=== PATIENT | male | born 1960 | race Caucasian/White ===

== ENCOUNTER 2018-10-12 11:45 | Day surgery (SDC) | payer OTHER, SELFPAY ==
[2018-10-12] VITALS (9 sets, daily range): BP systolic 120–159; BP diastolic 77–101; PULSE 51–69; RESP 13–16; TEMP 36.4–36.8; O2SAT 98–100
[2018-10-12] MEDS: Lactated Ringers 1,000 ML 80 ML IV (12:00)
[2018-10-12] MEDS: Bupivacaine 0.5% Pres-Free 30 ML VIAL (14:36)
--- NOTE | 2018-10-12 14:59 | W.PM.DSUDISC ---
Discharge Plan Disposition Patient Disposition: HOME Condition: Good Discharge Details Reason For Visit: (L) KNEE MMT Attending Provider: Rob Lynne Primary Care Provider: Dee Tee Home Meds and New Rx's Prescriptions: New hydrocodone-acetaminophen 5-325 mg tablet 1 tab PO Q4H PRN (Reason: pain) Qty: 10 RF: 0 acetaminophen 500 mg capsule 1,000 mg PO Q8H PRN (Reason: pain) Qty: 90 RF: 0 Continued levetiracetam [Keppra] 1,000 mg tablet 1,500 mg PO .am RF: 0 levetiracetam [Keppra] 1,000 mg tablet 1,000 mg PO HS RF: 0 dexmethylphenidate 10 mg capsule,ER biphasic 50-50 10 mg PO BID RF: 0 meloxicam 15 mg tablet 15 mg PO DAILY RF: 0 sumatriptan succinate 25 mg tablet 100 mg PO PRN RF: 0 hydrochlorothiazide 25 MG tablet 25 mg PO DAILY RF: 0 Discharge Instructions Stand Alone Forms: Maged Knee Arthroscopy Equipment/Supplies: Partial Weight Bearing Crutches Activity:: Elevate Remove Dressings/Wound Care:: 72 hours Shower/Bathe:: 72 hours Diet:: As Tolerated Discharge Orders Discharge Orders: Discharge Order (Routine); Ordered 10/12/18 Ordered By: Rob Lynne DS: Diagnosis Discharge Diagnosis (1) Tear of medial meniscus of left knee: Status: Chronic
[2018-10-12] MEDS: fentaNYL 100 MCG/2 ML VIAL IVP (15:25)
[2018-10-12] MEDS: oxyCODONE 5 MG TAB PO (16:14)
--- NOTE | 2018-10-12 21:05 | ROE_ITS ---
Date of service: 10/12/18 Time of Service: 15:01 Operative Note DATE OF PROCEDURE: 10/12/18 PRE-OP DIAGNOSIS: Left Knee Medial Meniscus Tear POST-OP DIAGNOSIS: same PROCEDURE: Left Knee Arthroscopic Partial Medial Menisectomy SURGEON: Rob Lynne ANESTHESIA: GETSofia ESTIMATED BLOOD LOSS: 0 PATHOLOGY: none sent COMPLICATIONS: None Patient was transported to: PACU Patient's condition: stable Indications: I have seen Vicente in clinic for symptoms of a meniscus tear. This was confirmed based on MRI and exam findings. Nonoperative measures were exhausted but disability and pain persisted. I discussed knee arthroscopy with meniscal intervention with the patient. I reviewed the risks of the procedure to include, but not limited to, bleeding, infection, pain, stiffness, damage to nerves or vessels, recurrence, blood clot. Despite these risks, the patient elected to proceed. 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 The consent was reviewed with the patient and signed. The history and physical was updated. All questions were answered. Vicente was taken back to the operating room. The patient was placed into the supine position on the operating room table. A nonsterile tourniquet was placed high onto the leg but not used. All bony prominences were well padded. Prophylactic antibiotics in the form of cefazolin were administered. The left leg was then prepped with Chloraprep and draped in a standard fashion with stockinette and extremity drape. A timeout to confirm correct identity, side and site, procedure, allergies, anesthesia, and medical concerns was performed. The leg was placed into a pneumatic leg ivory, [id number]. A standard lateral portal was made at the lateral border of the patella tendon in line with the inferior pole of the patella, soft spot. The skin and deep tissue was incised sharply and the blunt trochar was inserted atraumatically. A diagnostic arthroscopy was performed and the findings are listed above. The suprapatellar pouch had no significant inflammatory change. The patellofemoral articulation showed no articular damage as well as good tracking. The lateral gutter had no loose bodies and the medial gutter had no loose bodies. The knee was brought into some valgus stress in extension to open the medial compartment. A medial portal was made, localized by a spinal needle. The portal was created with an #11 blade through skin and capsule under direct visualization avoiding any meniscal injury. A probe was then inserted into the medial compartment. The medial compartment was fully inspected. The chondral surface of the tibia showed some grade II chondromalacia over the posterior tibia and the surface of the femur showed focal fraying and grade I/II chondromalacia. The medial meniscus had a complex meniscal tear with displaced fragments into the notch and also into the medial gutter. After evaluation, the meniscus was debrided down to a stable base using a series of biters and arthroscopic lenard. It was probed afterwards to confirm that the tear had been removed and the meniscus was stable. Cartilage surfaces were debrided of any flaps, leaving any intact fibers. The notch was then inspected which showed an intact ACL and an intact PCL. The leg was then brought into a figure of 4 position. The lateral compartment was fully inspected with the arthroscope and a probe. The chondral surface of the lateral femur showed no significant chondromalacia. The chondral surface of the lateral tibia showed no significant chondromalacia. The lateral meniscus had no meniscal tear. The arthroscope was brought back into the suprapatellar pouch and the leg was in full extension. The knee was thoroughly irrigated with the arthroscopic fluid on high flow and pressure. Inflow was stopped and excess fluid was removed. The wounds were closed with 4-0 Nylon. They were dressed with Xeroform, 4x4 gauze, ABD pad, Kerlix and an JAZZY wrap. A cryo-cuff was applied. The patient tolerated the procedure well and was returned to the [facility] area in a stable condition suffering no known complication.
== END 2018-10-12 17:07 | disposition home or self-care (01) ==
PROVIDERS: PCP Family Medicine; Visit Provider Student in an Organized Health Care Education/Training Program
PROC: (CPT 29870; principal; 2018-10-12 14:15)
DX: S83.232A Complex tear of medial meniscus, current injury, left knee, initial encounter (principal); X58.XXXA Exposure to other specified factors, initial encounter; M94.262 Chondromalacia, left knee
CPT/HCPCS: 29881; E0114; J0690; J1100; J1885; J2405; J3010

== ENCOUNTER 2019-06-22 09:43 | Outpatient (REF) | payer SELFPAY ==
[2019-06-22 12:44] LABS: HCT 46.9 % (40.0-50.0); HGB 15.9 g/dL (13.5-17.5); Mean Corp. HGB Concentration 33.9 g/dL (32.0-36.0); Mean Corpuscular Hemoglobin 31.1 pg (27.0-33.0); Mean Corpuscular Volume 91.8 fL (80-95); Mean Platelet Volume 10.3 fL (8.0-11.0); Platelet Count 344 x1000/uL (130-400); RBC 5.11 m/cumm (4.50-6.00); RBC Distribution Width 12.7 % (11.8-14.1); White Blood Cell Count 5.01 k/cumm (4.4-10.8)
[2019-06-22 13:58] LABS: ALT 34 U/L (16-63); AST 13 U/L (15-37); Albumin 3.9 g/dL (3.4-5.0); Alkaline Phosphatase 68 U/L (46-116); Anion Gap 10.3 mmol/L (3-11); BUN 20 mg/dL (7-18); Bilirubin, Total 0.5 mg/dL (0.2-1.0); CO2 27.7 mmol/L (21.0-32.0); CREATININE 1.11 mg/dL (0.70-1.30); Calcium 9.3 mg/dL (8.5-10.1); Calculated LDL 148 mg/dL; Chloride 104 mmol/L (98-107); Cholesterol 223 mg/dL (50-200); Glucose 95 mg/dL (70-100); HDL Cholesterol 60 mg/dL (40-60); Potassium 4.3 mmol/L (3.5-5.1); Sodium 142 mmol/L (136-145); Total Protein 7.1 g/dL (6.4-8.2); Triglyceride 76 mg/dL (30-150)
[2019-06-25 09:54] LABS: PSA, Diagnostic 0.9 ng/ml (0-3.5)
== END 2019-06-22 10:03 ==
LOC: NCHCN 09:43
PROVIDERS: PCP Family Medicine; Visit Provider Family Medicine
DX: Z00.00 Encounter for general adult medical examination without abnormal findings (principal); I10 Essential (primary) hypertension; G43.A0 Cyclical vomiting, in migraine, not intractable; R97.20 Elevated prostate specific antigen [PSA]
CPT/HCPCS: 80053; 80061; 85027; 84153

== ENCOUNTER 2019-12-14 15:14 | Outpatient (REF) | payer BC, SELFPAY ==
[2019-12-14 22:07] LABS: ALT 37 U/L (16-63); AST 22 U/L (15-37); Albumin 4.1 g/dL (3.4-5.0); Alkaline Phosphatase 67 U/L (46-116); BUN 22 mg/dL (7-18); Bilirubin, Total 0.4 mg/dL (0.2-1.0); CREATININE 1.11 mg/dL (0.70-1.30); Calcium 9.4 mg/dL (8.5-10.1); Chloride 102 mmol/L (98-107); Glucose 80 mg/dL (74-106); Potassium 3.6 mmol/L (3.5-5.1); Sodium 139 mmol/L (136-145); TSH (W/Ref FT4) 1.74 uIU/mL (0.36-3.74); Total Protein 7.1 g/dL (6.4-8.2)
[2019-12-14 22:09] LABS: ESR 4 mm/hr (1-20)
[2019-12-14 22:13] LABS: Anion Gap 11.7 mmol/L (3-11); CO2 25.3 mmol/L (21.0-32.0)
[2019-12-16 16:38] LABS: Rheumatoid Factor <8.6 IU/mL (<12.0)
[2019-12-17 14:56] LABS: ANA Interpretation Negative (Negative)
== END 2019-12-14 15:34 ==
LOC: NCHCN 15:14
PROVIDERS: PCP Family Medicine; Visit Provider Family Medicine
DX: I10 Essential (primary) hypertension (principal); F90.9 Attention-deficit hyperactivity disorder, unspecified type; M25.40 Effusion, unspecified joint
CPT/HCPCS: 80053; 85652; 84443; 86038; 86431

== ENCOUNTER 2020-02-11 09:17 | Outpatient (CLI) | payer BC, SELFPAY ==
--- NOTE | 2020-02-11 08:30 | DI.RAD_ITS ---
EXAM: XR HAND RT COMPLETE CLINICAL HISTORY: right knee pain. TECHNIQUE: 2D digital imaging was performed. COMPARISON: No exams were available for comparison FINDINGS: BONES: No acute fracture is present. No bony destructive lesion is seen. There is a well corticated o sseous fragment seen at the dorsum of the wrist consistent with an old injury. JOINTS: No dislocation present. Minimal periarticular spurring is seen at the interphalangeal joints. SOFT TISSUE: Normal. IMPRESSION: Minimal degenerative changes of the right hand. DATA REPOSITORY: RADIATION DOSE DELIVERED:
--- NOTE | 2020-02-11 08:30 | DI.RAD_ITS ---
EXAM: XR CERVICAL SPINE COMP 4-5V CLINICAL HISTORY: bilateral hand numbness. TECHNIQUE: 2D digital imaging was performed. COMPARISON: No exams were available for comparison FINDINGS: BONES: No fracture or destructive lesion. There is fusion of the C6 and C7 vertebral bodies. DISKS: There is disc space narrowing at C5-C6 and C7-T1. There are endplate osteophytes seen at C5-6 and C7-T1. There is neural foraminal narrowing on the right at C5-C6 and on the left at C3-C4 and C4 -C5. ALIGNMENT: Cervical spinal alignment is within normal limits. The odontoid and atlantoaxial articulat ions are normal. SOFT TISSUE: Normal. The lung apices are clear. IMPRESSION: Ccwf-am-iifigsbe degenerative changes of the cervical spine. DATA REPOSITORY: RADIATION DOSE DELIVERED:
--- NOTE | 2020-02-11 08:30 | DI.RAD_ITS ---
EXAM: XR KNEE RT 3V AP,LAT,ART CLINICAL HISTORY: hand numbness. TECHNIQUE: 2D digital imaging was performed. COMPARISON: No exams were available for comparison FINDINGS: BONES: No acute fracture is present. No bony destructive lesion is seen. JOINTS: The knee is normally aligned. No joint effusion is seen. There is mild periarticular spurring at the posterior patella and the medial femoral tibial joint space. Chondrocalcinosis is seen in th e femoral tibial joint. SOFT TISSUE: Normal. IMPRESSION: Mild degenerative changes of the right knee. DATA REPOSITORY: RADIATION DOSE DELIVERED:
--- NOTE | 2020-02-11 08:30 | DI.RAD_ITS ---
EXAM: XR HAND LT COMPLETE CLINICAL HISTORY: hand numbness. TECHNIQUE: 2D digital imaging was performed. COMPARISON: No exams were available for comparison FINDINGS: BONES: No acute fracture is present. No bony destructive lesion is seen. Mild spurring is seen at the interphalangeal joints. JOINTS: No dislocation present. SOFT TISSUE: Normal. IMPRESSION: Mild degenerative changes of the left hand. DATA REPOSITORY: RADIATION DOSE DELIVERED:
== END 2020-02-11 09:37 ==
PROVIDERS: PCP Family Medicine; Visit Provider Physician Assistant
DX: M25.561 Pain in right knee (principal); M17.11 Unilateral primary osteoarthritis, right knee; M11.261 Other chondrocalcinosis, right knee; M79.642 Pain in left hand; M19.042 Primary osteoarthritis, left hand; M79.641 Pain in right hand; M19.041 Primary osteoarthritis, right hand; R20.0 Anesthesia of skin; M50.322 Other cervical disc degeneration at C5-C6 level; M50.33 Other cervical disc degeneration, cervicothoracic region; Z98.1 Arthrodesis status
CPT/HCPCS: 73562; 72050; 73130

== ENCOUNTER 2020-04-11 08:31 | Outpatient (CLI) | payer BC, SELFPAY ==
[2020-04-14 20:19] LABS: SARS-CoV-2 RNA Undetected (Undetected); SARS-CoV-2 Specimen Source Nasopharynx
== END 2020-04-11 08:51 ==
PROVIDERS: PCP Family Medicine; Visit Provider Family Medicine
DX: Z11.59 Encounter for screening for other viral diseases (principal)
CPT/HCPCS: U0003

== ENCOUNTER 2020-04-25 07:32 | Outpatient (CLI) | payer BC, SELFPAY ==
[2020-04-30 19:38] LABS: SARS-CoV-2 RNA Undetected (Undetected); SARS-CoV-2 Specimen Source Nasopharynx
== END 2020-04-25 07:52 ==
PROVIDERS: PCP Family Medicine; Visit Provider Family Medicine
DX: Z11.59 Encounter for screening for other viral diseases (principal)
CPT/HCPCS: U0003

== ENCOUNTER 2020-05-09 07:33 | Outpatient (CLI) | payer BC, SELFPAY ==
[2020-05-13 15:35] LABS: SARS-CoV-2 RNA Undetected (Undetected); SARS-CoV-2 Specimen Source Nasopharynx
== END 2020-05-09 07:53 ==
PROVIDERS: PCP Family Medicine; Visit Provider Family Medicine
DX: Z11.59 Encounter for screening for other viral diseases (principal)
CPT/HCPCS: U0003

== ENCOUNTER 2020-05-23 07:32 | Outpatient (CLI) | payer BC, SELFPAY ==
[2020-05-24 18:07] LABS: COVID-19 RT-PCR Result NEGATIVE (Negative)
== END 2020-05-23 07:52 ==
PROVIDERS: PCP Family Medicine; Visit Provider Family Medicine
DX: Z11.59 Encounter for screening for other viral diseases (principal)
CPT/HCPCS: U0003

== ENCOUNTER 2020-06-06 07:13 | Outpatient (CLI) | payer BC, SELFPAY ==
[2020-06-07 23:57] LABS: COVID-19 RT-PCR Result NEGATIVE (Negative)
== END 2020-06-06 07:33 ==
PROVIDERS: PCP Family Medicine; Visit Provider Family Medicine
DX: Z11.59 Encounter for screening for other viral diseases (principal)
CPT/HCPCS: U0003

== ENCOUNTER 2020-06-20 02:33 | Outpatient (CLI) | payer BC, SELFPAY ==
[2020-06-22 06:41] LABS: Patient Race White; SARS-CoV-2 RNA Undetected (Undetected); SARS-CoV-2 Specimen Source Nasal
== END 2020-06-20 02:53 ==
PROVIDERS: PCP Family Medicine; Visit Provider Nurse Practitioner Family
DX: Z11.59 Encounter for screening for other viral diseases (principal)
CPT/HCPCS: U0003

== ENCOUNTER 2020-07-04 09:02 | Outpatient (CLI) | payer BC, SELFPAY ==
[2020-07-06 22:35] LABS: Patient Race White; SARS-CoV-2 RNA Undetected (Undetected); SARS-CoV-2 Specimen Source Nasal
== END 2020-07-04 09:22 ==
PROVIDERS: PCP Family Medicine; Visit Provider Family Medicine
DX: Z11.59 Encounter for screening for other viral diseases (principal)
CPT/HCPCS: U0003

== ENCOUNTER 2020-07-18 09:02 | Outpatient (CLI) | payer BC, SELFPAY ==
[2020-07-20 08:59] LABS: Patient Race White; SARS-CoV-2 RNA Undetected (Undetected); SARS-CoV-2 Specimen Source Nasal
== END 2020-07-18 09:22 ==
PROVIDERS: PCP Family Medicine; Visit Provider Family Medicine
DX: Z11.59 Encounter for screening for other viral diseases (principal)
CPT/HCPCS: U0003

== ENCOUNTER 2020-08-01 09:20 | Outpatient (CLI) | payer BC, SELFPAY ==
[2020-08-04 00:50] LABS: Patient Race White; SARS-CoV-2 RNA Undetected (Undetected); SARS-CoV-2 Specimen Source Nasal
== END 2020-08-01 09:40 ==
PROVIDERS: PCP Family Medicine; Visit Provider Family Medicine
DX: Z11.59 Encounter for screening for other viral diseases (principal)
CPT/HCPCS: U0003

== ENCOUNTER 2020-08-15 08:55 | Outpatient (CLI) | payer BC, SELFPAY ==
[2020-08-19 15:25] LABS: Patient Race White; SARS-CoV-2 RNA Undetected (Undetected); SARS-CoV-2 Specimen Source Nasal
== END 2020-08-15 09:15 ==
PROVIDERS: PCP Family Medicine; Visit Provider Family Medicine
DX: Z11.59 Encounter for screening for other viral diseases (principal)
CPT/HCPCS: U0003

== ENCOUNTER 2020-08-29 01:18 | Outpatient (CLI) | payer BC, SELFPAY ==
[2020-09-02 15:21] LABS: Patient Race White; SARS-CoV-2 RNA Undetected (Undetected); SARS-CoV-2 Specimen Source Nasal
== END 2020-08-29 01:38 ==
PROVIDERS: PCP Family Medicine; Visit Provider Family Medicine
DX: Z11.59 Encounter for screening for other viral diseases (principal)
CPT/HCPCS: U0003

== ENCOUNTER 2020-09-12 09:00 | Outpatient (CLI) | payer BC, SELFPAY ==
[2020-09-14 08:07] LABS: Patient Race White; SARS-CoV-2 RNA Undetected (Undetected); SARS-CoV-2 Specimen Source Nasal
== END 2020-09-12 09:20 ==
PROVIDERS: PCP Family Medicine; Visit Provider Family Medicine
DX: Z20.828 Contact with and (suspected) exposure to other viral communicable diseases (principal)
CPT/HCPCS: U0003

== ENCOUNTER 2020-09-19 08:13 | Outpatient (CLI) | payer BC, SELFPAY ==
[2020-09-20 16:43] LABS: COVID-19 RT-PCR Result NEGATIVE (Negative)
== END 2020-09-19 08:33 ==
PROVIDERS: PCP Family Medicine; Visit Provider Family Medicine
DX: Z20.828 Contact with and (suspected) exposure to other viral communicable diseases (principal)
CPT/HCPCS: U0003

== ENCOUNTER 2020-09-26 08:57 | Outpatient (CLI) | payer BC, SELFPAY ==
[2020-09-28 16:52] LABS: COVID-19 RT-PCR Result NEGATIVE (Negative)
== END 2020-09-26 09:17 ==
PROVIDERS: PCP Family Medicine; Visit Provider Family Medicine
DX: Z20.828 Contact with and (suspected) exposure to other viral communicable diseases (principal)
CPT/HCPCS: U0003

== ENCOUNTER 2020-10-03 09:13 | Outpatient (CLI) | payer BC, SELFPAY ==
[2020-10-06 17:18] LABS: COVID-19 RT-PCR Result NEGATIVE (Negative)
== END 2020-10-03 09:33 ==
PROVIDERS: PCP Family Medicine; Visit Provider Family Medicine
DX: Z11.59 Encounter for screening for other viral diseases (principal)
CPT/HCPCS: U0003

== ENCOUNTER 2020-10-07 03:04 | Outpatient (CLI) | payer BC, SELFPAY ==
[2020-10-09 00:11] LABS: COVID-19 RT-PCR Result NEGATIVE (Negative)
== END 2020-10-07 03:24 ==
PROVIDERS: PCP Family Medicine; Visit Provider Family Medicine
DX: Z20.828 Contact with and (suspected) exposure to other viral communicable diseases (principal)
CPT/HCPCS: U0003

== ENCOUNTER 2020-10-24 03:43 | Outpatient (CLI) | payer BC, SELFPAY ==
[2020-10-25 15:29] LABS: COVID-19 RT-PCR UVMMC Result Negative (Negative)
== END 2020-10-24 04:03 ==
PROVIDERS: PCP Family Medicine; Visit Provider Family Medicine
DX: Z20.822 Contact with and (suspected) exposure to COVID-19 (principal)
CPT/HCPCS: U0003

== ENCOUNTER 2020-10-31 08:57 | Outpatient (CLI) | payer BC, SELFPAY ==
[2020-11-01 16:38] LABS: COVID-19 RT-PCR Result NEGATIVE (Negative)
== END 2020-10-31 09:17 ==
PROVIDERS: PCP Family Medicine; Visit Provider Family Medicine
DX: Z20.822 Contact with and (suspected) exposure to COVID-19 (principal)
CPT/HCPCS: U0003

== ENCOUNTER 2020-11-07 07:35 | Outpatient (CLI) | payer BC, SELFPAY ==
[2020-11-09 10:31] LABS: COVID-19 RT-PCR Result NEGATIVE (Negative)
== END 2020-11-07 07:55 ==
PROVIDERS: PCP Family Medicine; Visit Provider Family Medicine
DX: Z20.822 Contact with and (suspected) exposure to COVID-19 (principal)
CPT/HCPCS: U0003

== ENCOUNTER 2020-11-14 02:33 | Outpatient (CLI) | payer BC, SELFPAY ==
--- NOTE | 2020-11-14 14:40 | DI.MRI_ITS ---
EXAM: MR LOWER JOINT RT WO CLINICAL HISTORY: INTERNAL DERANGEMENT, PAIN, M23.91 TECHNIQUE: Multiplanar multisequence MRI of the knee was performed. COMPARISON: MR MR KNEE LEFT WO CONTRAST from 07/17/2018 CR XR KNEE RT 3V AP,LAT,ART from 02/11/2020 FINDINGS: EFFUSION: There is a small knee joint effusion. There is no Key cyst in the medial popliteal fossa . MARROW:There is no evidence of fracture. There are no bone contusions in tibial plateau and femoral condyles nor abnormal signal in the fibular head and neck. There are no significant osseous lesions. PATELLOFEMORAL COMPARTMENT: The quadriceps tendon is intact. The patellar ligament is intact. There is some thinning of the retropatellar cartilage, most evident over the mid-medial facet and the arm there 2 foci of subarticular signal abnormality in the posterior medial aspect of the patella ov er this region. There is no distinct osteochondral defect.There is no intraosseous signal to suggest recent patellar dislocation. There are no patellar retinacular tears. CRUCIATE LIGAMENTS: The anterior cruciate ligament is intact.The posterior cruciate ligament is intac t. MEDIAL COMPARTMENT/MEDIAL MENISCUS: There is significance signal abnormality in the posterior horn of the medial meniscus which violates inferior articular surface consistent with tearing. Degenerative signal within the meniscus extends towards the root but there is no tear of the root nor bucket-hand le configuration. There is a degenerative subarticular cyst in the posterior tibial plateau subjacen t to the torn posterior horn medial meniscus, this cyst measuring 8 by 7 millimeters. The anterior h orn of the medial meniscus appears intact with mild extrusion.. Mild degenerative changes evident in the overlying hyaline cartilage. No osteochondral defects. The re are small marginal osteophytes. MEDIAL COLLATERAL LIGAMENT: Intact LATERAL COMPARTMENT/LATERAL MENISCUS: There is signal abnormality in the posterior horn of the latera l meniscus which is consistent with significant myxoid degeneration bordering on horizontal tearing. Also or. There is no meniscal extrusion. Minimal degenerative [facility] cartilage changes seen in t he lateral compartment. No degenerative subarticular cysts evident in the lateral compartment. ILIOTIBIAL BAND: Intact LATERAL COLLATERAL LIGAMENT COMPLEX: The fibular collateral ligament is intact. The biceps femoris t endon is intact.Popliteus muscle and tendon are intact. IMPRESSION: 1. There is tear of the posterior horn of the medial meniscus. Mild degenerative changes in the medi al compartment including small marginal osteophytes and a degenerative subarticular cyst subjacent to the posterior horn medial meniscus with in the subarticular aspect of the posterior tibial plateau a t this level. 2. 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 3. Cruciate and collateral ligaments are intact as is the iliotibial band. 4. Grade 3 chondromalacia patella medial facet. Small joint effusion. No Key cyst DATA REPOSITORY:
== END 2020-11-14 02:53 ==
PROVIDERS: PCP Family Medicine; Visit Provider Student in an Organized Health Care Education/Training Program
DX: M17.11 Unilateral primary osteoarthritis, right knee (principal); M25.461 Effusion, right knee; S83.241A Other tear of medial meniscus, current injury, right knee, initial encounter; M22.41 Chondromalacia patellae, right knee
CPT/HCPCS: 73721

== ENCOUNTER 2020-11-14 10:32 | Outpatient (CLI) | payer BC, SELFPAY ==
[2020-11-15 13:08] LABS: COVID-19 RT-PCR UVMMC Result Negative (Negative)
== END 2020-11-14 10:52 ==
PROVIDERS: PCP Family Medicine; Visit Provider Family Medicine
DX: Z20.822 Contact with and (suspected) exposure to COVID-19 (principal)
CPT/HCPCS: U0003

== ENCOUNTER 2020-11-21 08:44 | Outpatient (CLI) | payer BC, SELFPAY ==
[2020-11-22 11:32] LABS: COVID-19 RT-PCR UVMMC Result Negative (Negative)
== END 2020-11-21 08:45 | disposition home or self-care (01) ==
LOC: LBO 08:44
PROVIDERS: PCP Family Medicine; Visit Provider Family Medicine
DX: Z20.822 Contact with and (suspected) exposure to COVID-19 (principal)
CPT/HCPCS: U0003

== ENCOUNTER 2020-11-28 08:51 | Outpatient (CLI) | payer BC, SELFPAY ==
[2020-11-29 11:44] LABS: COVID-19 RT-PCR UVMMC Result Negative (Negative)
== END 2020-11-28 08:52 | disposition home or self-care (01) ==
PROVIDERS: PCP Family Medicine; Visit Provider Family Medicine
DX: Z20.822 Contact with and (suspected) exposure to COVID-19 (principal)
CPT/HCPCS: U0003

== ENCOUNTER 2020-12-05 09:00 | Outpatient (CLI) | payer BC, SELFPAY ==
[2020-12-06 13:57] LABS: COVID-19 RT-PCR UVMMC Result Negative (Negative)
== END 2020-12-05 09:01 | disposition home or self-care (01) ==
LOC: LBO 09:00
PROVIDERS: PCP Family Medicine; Visit Provider Family Medicine
DX: Z20.822 Contact with and (suspected) exposure to COVID-19 (principal)
CPT/HCPCS: U0003

== ENCOUNTER 2020-12-12 01:56 | Outpatient (CLI) | payer BC, SELFPAY ==
[2020-12-13 14:14] LABS: COVID-19 RT-PCR UVMMC Result Negative (Negative)
== END 2020-12-12 01:57 | disposition home or self-care (01) ==
LOC: LBO 01:56
PROVIDERS: PCP Family Medicine; Visit Provider Family Medicine
DX: Z20.822 Contact with and (suspected) exposure to COVID-19 (principal)
CPT/HCPCS: U0003

== ENCOUNTER 2020-12-19 03:44 | Outpatient (CLI) | payer BC, SELFPAY ==
[2020-12-20 14:08] LABS: COVID-19 RT-PCR UVMMC Result Negative (Negative)
== END 2020-12-19 03:45 | disposition home or self-care (01) ==
LOC: LBO 03:44
PROVIDERS: PCP Family Medicine; Visit Provider Family Medicine
DX: Z20.822 Contact with and (suspected) exposure to COVID-19 (principal)
CPT/HCPCS: U0003

== ENCOUNTER 2020-12-26 08:59 | Outpatient (CLI) | payer BC, SELFPAY ==
[2020-12-27 18:03] LABS: COVID-19 RT-PCR UVMMC Result Negative (Negative)
== END 2020-12-26 09:00 | disposition home or self-care (01) ==
PROVIDERS: PCP Family Medicine; Visit Provider Family Medicine
DX: Z20.822 Contact with and (suspected) exposure to COVID-19 (principal)
CPT/HCPCS: U0003

== ENCOUNTER 2021-01-02 03:42 | Outpatient (CLI) | payer BC, SELFPAY ==
--- NOTE | 2021-01-02 | DI.MRI_ITS ---
EXAM: MR BRAIN WO/W CLINICAL HISTORY: MOTOR TICS,F95.8,HEADACHES,R51.9,DIZZINESS,R42,F/U ABNL MRI,R93.0,PINEAL. TECHNIQUE: Multiplanar multisequence MRI of the brain was performed. CONTRAST MATERIAL: IV Contrast: 18 ML of Dotarem contrast administered. COMPARISON: MR MR BRAIN WO CONTRAST from 01/10/2017 FINDINGS: VENTRICLES AND EXTRA AXIAL SPACES: Normal in size and morphology for the patient's age. HEMORRHAGE: None. CEREBRAL PARENCHYMA: No focus of restricted diffusion to suggest acute infarct. No space-occupying le sulema identified. No significant atrophy. Mild to moderate scattered foci of high signal in the whit e matter, slightly more prominent when compared with 2017. MIDLINE SHIFT: None. BRAINSTEM/CEREBELLUM: Normal. ENHANCEMENT: No suspicious enhancement identified. The [id number]-Zivbft vasculature appears normal. VISUALIZED PARANASAL SINUSES/MASTOIDS: Clear. OTHER FINDINGS: No abnormalities seen in the region of the pineal gland. IMPRESSION: scattered nonenhancing foci of high signal in the white matter is nonspecific but may reflect chroni c microvascular disease. No acute abnormality is seen. DATA REPOSITORY:
[2021-01-02 10:11] LABS: BUN 24 mg/dL (7-18); CREATININE 1.1 mg/dL (0.70-1.30)
[2021-01-02] MEDS: Normal Saline Flush 10 ML SYR IVP (10:19)
[2021-01-02] MEDS: Gadoterate meglumine 20 ML VIAL 18 ML IVP (10:20)
== END 2021-01-02 04:02 ==
PROVIDERS: PCP Family Medicine; Visit Provider Psychiatry & Neurology Neurology
DX: R42 Dizziness and giddiness (principal); R51.9 Headache, unspecified; F95.8 Other tic disorders; R93.0 Abnormal findings on diagnostic imaging of skull and head, not elsewhere classified
CPT/HCPCS: 70553; 84520; 82565

== ENCOUNTER 2021-01-02 09:00 | Outpatient (CLI) | payer BC, SELFPAY ==
[2021-01-03 14:22] LABS: COVID-19 RT-PCR UVMMC Result Negative (Negative)
== END 2021-01-02 09:01 | disposition home or self-care (01) ==
PROVIDERS: PCP Family Medicine; Visit Provider Family Medicine
DX: Z20.822 Contact with and (suspected) exposure to COVID-19 (principal)
CPT/HCPCS: U0003

== ENCOUNTER 2021-01-09 09:26 | Outpatient (CLI) | payer BC, SELFPAY ==
[2021-01-09 23:57] LABS: COVID-19 RT-PCR UVMMC Result Negative (Negative)
== END 2021-01-09 09:27 | disposition home or self-care (01) ==
PROVIDERS: PCP Family Medicine; Visit Provider Family Medicine
DX: Z20.822 Contact with and (suspected) exposure to COVID-19 (principal)
CPT/HCPCS: U0003

== ENCOUNTER 2021-01-16 07:28 | Outpatient (CLI) | payer BC, SELFPAY ==
[2021-01-17 14:34] LABS: COVID-19 RT-PCR UVMMC Result Negative (Negative)
== END 2021-01-16 07:29 | disposition home or self-care (01) ==
PROVIDERS: PCP Family Medicine; Visit Provider Family Medicine
DX: Z20.822 Contact with and (suspected) exposure to COVID-19 (principal)
CPT/HCPCS: 87635; U0003

== ENCOUNTER 2021-01-23 07:31 | Outpatient (CLI) | payer BC, SELFPAY ==
[2021-01-24 13:45] LABS: COVID-19 RT-PCR UVMMC Result Negative (Negative)
== END 2021-01-23 07:32 | disposition home or self-care (01) ==
PROVIDERS: PCP Family Medicine; Visit Provider Family Medicine
DX: Z20.822 Contact with and (suspected) exposure to COVID-19 (principal)
CPT/HCPCS: U0003

== ENCOUNTER 2021-01-30 08:54 | Outpatient (CLI) | payer BC, SELFPAY ==
[2021-01-31 15:05] LABS: COVID-19 RT-PCR UVMMC Result Negative (Negative)
== END 2021-01-30 08:55 | disposition home or self-care (01) ==
PROVIDERS: PCP Family Medicine; Visit Provider Family Medicine
DX: Z20.822 Contact with and (suspected) exposure to COVID-19 (principal)
CPT/HCPCS: U0003

== ENCOUNTER 2021-02-04 07:56 | Day surgery (SDC) | payer BC, SELFPAY ==
[2021-02-04] VITALS (9 sets, daily range): BP systolic 126–159; BP diastolic 67–92; PULSE 50–71; RESP 12–22; TEMP 36.1–36.9; O2SAT 92–100
--- NOTE | 2021-02-04 07:32 | W.PM.DSUDISC ---
Discharge Plan Disposition Patient Disposition: HOME Condition: Good Discharge Details Reason For Visit: Rcarpal&cubital tunnel;R knee internal derangement Attending Provider: Rob Lynne Primary Care Provider: Dee Tee Home Meds and New Rx's Prescriptions: New ibuprofen 600 mg tablet 600 mg PO TID PRN (Reason: pain) Qty: 60 RF: 0 oxycodone 5 mg tablet 5 mg PO Q6H PRN (Reason: severe post-operative pain) Qty: 10 RF: 0 Continued Briviact 50 mg tablet 100 mg PO DAILY RF: 0 alprazolam 0.5 mg tablet 0.5 mg PO ONCE PRN (Reason: claustrophobia) Qty: 2 RF: 0 sumatriptan succinate 25 mg tablet 100 mg PO PRN RF: 0 dexmethylphenidate 10 mg capsule,ER biphasic 50-50 5 mg PO BID RF: 0 methylprednisolone acetate [Depo-Medrol] 40 mg/mL suspension 40 mg Tendon Sheath Inj. ONCE Qty: 1 RF: 0 hydrochlorothiazide 25 MG tablet 25 mg PO DAILY RF: 0 acetaminophen 500 mg capsule 1,000 mg PO Q8H PRN (Reason: pain) Qty: 90 RF: 0 Discharge Instructions Additional Instructions: Cubital Tunnel Decompression Discharge Instructions Activity: You should stay in the sling for the first 2 weeks. You may come out of the sling for gentle motion and hygiene but should largely remain in the sling to allow the incision site to heal. Gentle motion of the elbow, hand, wrist, and fingers is okay and encouraged after the first few days, but no repetitive activities nor heavy lifting. You may apply ice. Medications: - You should take Tylenol and Ibuprofen around the clock. - You have been prescribed Oxycodone for breakthrough pain. Dressings: - The initial surgical dressing should stay in place for 3 days. It may then be removed and kept clean and dry. You should cover with a light gauze dressing. - You may shower after 3 days and get the wound wet. Follow-up: 10 days Stand Alone Forms: Maged Knee Arthroscopy, Maged C. Tunnel Release Referrals: Rob Lynne MD [ [facility] STAFF PHYSICIAN] - Equipment/Supplies: Partial Weight Bearing Crutches Activity:: Elevate Remove Dressings/Wound Care:: 72 hours Shower/Bathe:: 72 hours Diet:: As Tolerated Discharge Orders Discharge Orders: Discharge Order (Routine); Ordered 02/04/21 Ordered By: Prabha Avelar DS: Diagnosis Discharge Diagnosis (1) Cubital tunnel syndrome on right: Status: Acute (2) Complex tear of medial meniscus of right knee: Status: Acute (3) Right carpal tunnel syndrome: Status: Acute
[2021-02-04] MEDS: Acetaminophen 500 MG TAB 1000 MG PO (08:25)
[2021-02-04] MEDS: Celecoxib 200 MG CAP 400 MG PO (08:26)
[2021-02-04] MEDS: Gabapentin 300 MG CAP PO (08:26)
[2021-02-04] MEDS: Lactated Ringers 1,000 ML 80 ML IV (08:37)
[2021-02-04] MEDS: ceFAZolin 2 GM/50 ML BAG IVPB (11:00)
[2021-02-04] MEDS: Sodium Bicarbonate 50 MEQ/50 ML VIAL (11:45)
[2021-02-04] MEDS: Bupivacaine 0.5% Pres-Free 30 ML VIAL (12:40)
--- NOTE | 2021-02-04 12:52 | W.PM.OP ---
Date of service: 02/04/21 Time of Service: 12:52 Operative Note Operative Note DATE OF PROCEDURE: 02/04/21 PRE-OP DIAGNOSIS: Right Carpal Tunnel and Right Cubital Tunnel Syndrome, Right Medial Meniscus Tear POST-OP DIAGNOSIS: same Right Lateral Meniscus Tear PROCEDURE: Right Endoscopic Carpal Tunnel Release and Right Cubital Tunnel Decompression with Anterior Subcutaneous Transposition and Right Arthroscopic Partial Lateral and Medial Menisectomies SURGEON: Rob Lynne TURBINE MECHANIC: Prabha Avelar ANESTHESIA TYPE: General LMA/ETT Refer to Anesthesia Record ESTIMATED BLOOD LOSS: 0 PATHOLOGY: none sent TOURNIQUET TIME: 33 COMPLICATIONS: None Patient was transported to: PACU Patient's condition: stable Indications: Vicente is a 60 year old who has had symptoms of carpal and cubital tunnel syndrome in addition to persistent right knee pain, confirmed no meniscal tear on MRI. Nonoperative treatment options had been trialed. [Nerve conduction studies identified the carpal and cubital tunnel as the point of compression]. Given failure of nonoperative treatments and persistent symptoms, I offered operative intervention. I reviewed the technical details of a carpal tunnel release and cubital tunnel decompression with possible anterior subcutaneous transposition. Due to Vicente's commitments at work, he requested that the surgery be coupled with surgery for his knee. Therefore, I did offer arthroscopic partial meniscectomy as well. I reviewed the risks of each procedure to include bleeding, infection, pain, stiffness, nerve instability, incomplete release, continued pain, worsening arthritis, need for repeat procedures. Despite these risks, the patient elected to proceed. Findings: The carpal tunnel was release with a standard endoscopic technique without difficulty and excellent visualization. There was a tightened cubital tunnel this is mostly distal to the cubital tunnel within the muscle, FCU. Interestingly, there was significant muscle belly seen within the cubital tunnel however did not seem to originate from the medial condyle but more was a distal extension of the medial triceps, although my suspicion was it was some form of epitrochlearis muscle. The ulnar nerve was release from the first motor branch distally through the [place] proximally. The nerve is unstable after the decompression so therefore it was transposed anteriorly and held in place with a fascial flap. Arthroscopy of the right knee revealed mild degenerative changes, worse in the lateral compartment. Additionally, there was a complex tear of both medial and lateral menisci. Procedure Description: Vicente was greeted in the preoperative holding area where the correct side was identified and marked. The consent was reviewed with the patient and signed. The history and physical was updated. All questions were answered. Vicente was taken back to the operating room. The patient was placed into the supine position on the operating room table with the right arm on an arm board. A nonsterile tourniquet was placed high onto the arm, into the axilla. All bony prominences were well padded. Prophylactic antibiotics in the form of cefazolin were administered. The right arm was then prepped with Chloraprep and draped in a standard fashion with stockinette and extremity drape. A timeout to confirm correct identity, side and site, procedure, allergies, anesthesia, and medical concerns was performed. The surgical site was marked in the volar wrist creases in line with the radial border of the fourth ray. This area was anesthetized with approximately 6cc of 1% Lidocaine. The limb was then exsanguinated with an Esmarch. The skin was incised with a 15 blade, approximately 1cm. The skin only was cut and the deeper tissue was dissected bluntly with a tenotomy scissor, avoiding passing nerve and venous structures. The fascia was penetrated and opened bluntly. A two-prong skin hook was placed under this proximal fascial edge. A series of hamate finders were used to identify and dilate the carpal tunnel. Synovial elevator was used to free synovial attachments to the underside of the transverse carpal ligament. My thumb was kept in the palm to rosey the distal extent of the carpal tunnel and correctly position the hand. The [employer] endoscope was inserted without difficulty and without resistance. Excellent visualization showed horizontally running fibers of the transverse carpal ligament (TCL). The distal extent of the TCL was visualized and the end of the scope palpated with the thumb. The blade was elevated and withdrawn from distal to proximal. The TCL was split into two flaps. The endoscope was reinserted to confirm complete release and any remnant ligament was incised. The scope was withdrawn and the proximal aspect of the carpal tunnel was grossly inspected and appeared release with the median nerve visible. The antebrachial fascia at the level of the wrist was then freed from the overlying skin and then the underlying median nerve with blunt dissection. This was transected longitudinally for about 3cm proximal to the wrist incision. The wound was then irrigated with easy flow of irrigant distally and proximally. The incision was closed with a single 4-0 Nylon suture. The wound was dressed with Xeroform, Gauze, Kerlix. The surgical site was drawn on the skin as was the medial epicondyle borders. The planned surgical field was anesthetized with 1% Lidocaine with epinephrine. The skin was incised only. The deep tissue and subcutaneous fat was dissected with a tenotomy scissors trying to protect any branches of the medial antebrachial cutaneous nerve. Any branches that were identified were retracted out of the way. The ulnar nerve was palpated and identified. A small window into the cubital tunnel, sheath overlying the nerve, was created and the nerve was able to be palpated with the Hammett. Visualization proximally was challenging due to significant muscle fibers within this region covering the ulnar nerve at the level of the medial condyle just proximal to it. A Metzenbaum scissor was then used to open up the sheath starting with Enriquez's ligament. I then worked distal over the ulnar nerve releasing any constraints against the nerve all the way to the fascia of the FCU muscle belly. This muscle belly was bluntly all the way down to the first motor branch of the ulnar nerve and the overlying fascia was incised. Likewise starting there at the medial epicondyle, I proceeded to work proximally to release any constraints over the ulnar nerve. These muscle fibers did not seem to originate from the medial condyle, as I would have expected if it was an epitrochlear areas muscle. Nevertheless, the nerve was dissected away from soft tissue attachments. There is no significant medial intermuscular septum. The dissection was taken all the way to the arcDelmar. After fully releasing the nerve it was inspected visually. I was also able to palpate the nerve fully and reach one finger up into the proximal and distal aspects to make sure there were no constraints against the nerve. A freer elevator was also used to slide easily against the ulnar nerve without any points of constriction. The arm was then taken through range of motion. The ulnar nerve did sublux out of its groove behind the medial epicondyle and in this flexed position those muscle fibers compressed the nerve. Therefore, I then performed an anterior subcutaneous transposition. Gentle dissection was carried superficially around the nerve from its most proximal to most distal aspects. Vascularity was from the nerve but tried to be left intact. This dissection and work was carried out underneath the branches of the median antebrachial cutaneous nerve. Small flap of tissue was then raised from the flexor pronator origin. This was dissected off, leaving his base attached to the medial condyle. Using a #2-0 Vicryl this flap was attached to the undersurface of the skin corresponding to the medial condyle. The nerve was held anterior to this while the flap was tied. The anterior transposition was then checked to make sure that the nerve is free. There is no point of compression against the nerve. There is no sharp angles for the nerves and new location anteriorly. The tourniquet was then deflated. Any areas of bleeding were cauterized with bipolar electrocautery. The wound was thoroughly irrigated. The deep tissue was closed with a 3-0 Vicryl. The skin was closed with a 4-0 nylon. The wound was dressed with Xeroform, 4 x 4's, ABD, Kerlix and an Bridger wrap. Vicente was placed into a sling. Attention was then turned to the right leg. The leg was placed into a pneumatic leg ivory, SPIDER2. A standard lateral portal was made at the lateral border of the patella tendon in line with the inferior pole of the patella, soft spot. The skin and deep tissue was incised sharply and the blunt trochar was inserted atraumatically. A diagnostic arthroscopy was performed and the findings are listed above. The suprapatellar pouch had no significant inflammatory change. The patellofemoral articulation showed no articular damage as well as good tracking. The lateral gutter had no loose bodies and the medial gutter had no loose bodies. The knee was brought into some valgus stress in extension to open the medial compartment. A medial portal was made, localized by a spinal needle. The portal was created with an #11 blade through skin and capsule under direct visualization avoiding any meniscal injury. A probe was then inserted into the medial compartment. The medial compartment was fully inspected. The chondral surface of the tibia showed no significant chondromalacia and the surface of the femur showed no significant chondromalacia. The medial meniscus had a complex tear involving the majority of the posterior horn and body. After evaluation, the meniscus was debrided down to a stable base using a series of biters and arthroscopic lenard. It was probed afterwards to confirm that the tear had been removed and the meniscus was stable. The notch was then inspected which showed an intact ACL and an intact PCL. The leg was then brought into a figure of 4 position. The lateral compartment was fully inspected with the arthroscope and a probe. The chondral surface of the lateral femur showed some mild chondromalacia. The chondral surface of the lateral tibia showed areas of grade 2 and may even some focal grade III chondromalacia. The lateral meniscus had a complex tear starting at the level of the root through the posterior horn with a displaced fragment towards the notch. The root was attached and there was a periphery of meniscus which was still intact and stable. After evaluation, the meniscus was debrided down to a stable base using a series of biters and arthroscopic lenard. It was probed afterwards to confirm that the tear had been removed and the meniscus was stable. The arthroscope was brought back into the suprapatellar pouch and the leg was in full extension. The knee was thoroughly irrigated with the arthroscopic fluid on high flow and pressure. Inflow was stopped and excess fluid was removed. The wounds were closed with 4-0 Nylon. They were dressed with Xeroform, 4x4 gauze, ABD pad, Kerlix and an BRIDGER wrap. A cryo-cuff was applied. Vicente was transferred back to the PACU in a stable condition.
[2021-02-04] MEDS: fentaNYL 100 MCG/2 ML VIAL IVP ×2 (13:21→13:35)
== END 2021-02-04 15:30 | disposition home or self-care (01) ==
LOC: SUR 07:56
PROVIDERS: PCP Family Medicine; Visit Provider Student in an Organized Health Care Education/Training Program
PROC: (CPT 29870; principal; 2021-02-04 10:00)
PROC: 01N54ZZ Release Median Nerve, Percutaneous Endoscopic Approach (ICD-10-PCS; CPT 29848; 2021-02-04 10:00)
PROC: (CPT 29880; 2021-02-04 10:00)
DX: G56.21 Lesion of ulnar nerve, right upper limb (principal); S83.231A Complex tear of medial meniscus, current injury, right knee, initial encounter; G56.01 Carpal tunnel syndrome, right upper limb; X58.XXXA Exposure to other specified factors, initial encounter; M94.261 Chondromalacia, right knee; S83.271A Complex tear of lateral meniscus, current injury, right knee, initial encounter
CPT/HCPCS: 29880; 64721; 29848; J0690; J1100; J1885; J2001; J2405; J2704; J3010

== ENCOUNTER 2021-02-13 11:26 | Outpatient (CLI) | payer BC, SELFPAY ==
[2021-02-14 11:04] LABS: COVID-19 RT-PCR UVMMC Result Negative (Negative)
== END 2021-02-13 11:27 | disposition home or self-care (01) ==
LOC: LBO 11:26
PROVIDERS: PCP Family Medicine; Visit Provider Family Medicine
DX: Z20.822 Contact with and (suspected) exposure to COVID-19 (principal)
CPT/HCPCS: U0003

== ENCOUNTER 2021-02-23 15:32 | Outpatient (REF) | payer BC, SELFPAY ==
[2021-02-23 15:05] LABS: HCT 45.9 % (40.0-50.0); HGB 15.3 g/dL (13.5-17.5); MCH 31.4 pg (27.0-33.0); MCHC 33.3 % (32.0-36.0); MCV 94.1 fL (80-95); MPV 10.3 fL (8.0-11.0); Platelet Count 358 10^3/uL (130-400); RBC 4.88 10^6/uL (4.36-5.78); RDW 12.4 % (11.8-14.1); RDW-SD 42.9 fL; WBC 5.22 10^3/uL (4.4-10.8)
[2021-02-23 15:47] LABS: ALT 45 U/L (16-63); AST 16 U/L (15-37); Albumin 3.9 g/dL (3.4-5.0); Alkaline Phosphatase 69 U/L (46-116); Anion Gap 7.1 mmol/L (3-11); BUN 30 mg/dL (7-18); Bilirubin, Total 0.6 mg/dL (0.2-1.0); CO2 29.9 mmol/L (21.0-32.0); CREATININE 1.3 mg/dL (0.70-1.30); Calculated LDL 139 mg/dL (<100); Chloride 108 mmol/L (98-107); Cholesterol 218 mg/dL (<200); Glucose 99 mg/dL (74-106); HDL Cholesterol 62 mg/dL (40-60); Potassium 4.7 mmol/L (3.5-5.1); Sodium 145 mmol/L (136-145); Total Protein 6.9 g/dL (6.4-8.2); Triglyceride 86 mg/dL (<150)
== END 2021-02-23 15:33 | disposition home or self-care (01) ==
LOC: NCHCN 15:32
PROVIDERS: PCP Family Medicine; Visit Provider Family Medicine
DX: I10 Essential (primary) hypertension (principal); R53.83 Other fatigue; M25.461 Effusion, right knee
CPT/HCPCS: 80053; 80061; 85027

== ENCOUNTER 2021-02-27 09:11 | Outpatient (CLI) | payer BC, SELFPAY ==
[2021-02-28 14:16] LABS: COVID-19 RT-PCR UVMMC Result Negative (Negative)
== END 2021-02-27 09:12 | disposition home or self-care (01) ==
PROVIDERS: PCP Family Medicine; Visit Provider Family Medicine
DX: Z20.822 Contact with and (suspected) exposure to COVID-19 (principal)
CPT/HCPCS: U0003

== ENCOUNTER 2021-03-13 02:22 | Outpatient (CLI) | payer BC, SELFPAY ==
[2021-03-14 14:22] LABS: COVID-19 RT-PCR UVMMC Result Negative (Negative)
== END 2021-03-13 02:23 | disposition home or self-care (01) ==
PROVIDERS: PCP Family Medicine; Visit Provider Family Medicine
DX: Z20.822 Contact with and (suspected) exposure to COVID-19 (principal)
CPT/HCPCS: U0003

== ENCOUNTER 2021-03-20 08:06 | Outpatient (CLI) | payer BC, SELFPAY ==
[2021-03-21 14:24] LABS: COVID-19 RT-PCR UVMMC Result Negative (Negative)
== END 2021-03-20 08:07 | disposition home or self-care (01) ==
PROVIDERS: PCP Family Medicine; Visit Provider Family Medicine
DX: Z20.822 Contact with and (suspected) exposure to COVID-19 (principal)
CPT/HCPCS: U0003

== ENCOUNTER 2021-03-27 09:12 | Outpatient (CLI) | payer BC, SELFPAY ==
[2021-03-28 13:55] LABS: COVID-19 RT-PCR UVMMC Result Negative (Negative)
== END 2021-03-27 09:13 | disposition home or self-care (01) ==
PROVIDERS: PCP Family Medicine; Visit Provider Family Medicine
DX: Z20.822 Contact with and (suspected) exposure to COVID-19 (principal)
CPT/HCPCS: U0003

== ENCOUNTER 2021-04-17 02:23 | Outpatient (CLI) | payer BC, SELFPAY ==
[2021-04-18 14:12] LABS: COVID-19 RT-PCR UVMMC Result Negative (Negative)
== END 2021-04-17 02:24 | disposition home or self-care (01) ==
LOC: LBO 02:23
PROVIDERS: PCP Family Medicine; Visit Provider Family Medicine
DX: Z20.822 Contact with and (suspected) exposure to COVID-19 (principal)
CPT/HCPCS: U0003

== ENCOUNTER 2021-05-11 09:28 | Outpatient (CLI) | payer BC, SELFPAY ==
[2021-05-12 17:59] LABS: COVID-19 RT-PCR UVMMC Result Negative (Negative)
== END 2021-05-11 09:29 | disposition home or self-care (01) ==
PROVIDERS: PCP Family Medicine; Visit Provider Family Medicine
DX: Z20.822 Contact with and (suspected) exposure to COVID-19 (principal)
CPT/HCPCS: U0003

== ENCOUNTER 2021-05-15 09:17 | Outpatient (CLI) | payer BC, SELFPAY ==
[2021-05-16 13:22] LABS: COVID-19 RT-PCR UVMMC Result Negative (Negative)
== END 2021-05-15 09:18 | disposition home or self-care (01) ==
PROVIDERS: PCP Family Medicine; Visit Provider Family Medicine
DX: Z20.822 Contact with and (suspected) exposure to COVID-19 (principal)
CPT/HCPCS: U0003

== ENCOUNTER 2021-05-25 14:34 | Outpatient (CLI) | payer BC, SELFPAY ==
[2021-05-25 16:15] LABS: BUN 22 mg/dL (7-18); CREATININE 1.3 mg/dL (0.70-1.30); Estimated GFR 56.31 (mL/min/1.73m2)
[2021-05-25 16:48] LABS: Ferritin 253 ng/mL (26-388); Vitamin B12 487 pg/mL (193-986)
[2021-05-25 16:54] LABS: Vitamin D 25 Total 32.2 ng/mL (30-100)
[2021-05-25 17:05] LABS: FREE T4 1.01 ng/dL (0.76-1.46)
== END 2021-05-25 14:35 | disposition home or self-care (01) ==
LOC: LBO 14:36
PROVIDERS: PCP Family Medicine; Visit Provider Internal Medicine Sleep Medicine
DX: G47.61 Periodic limb movement disorder (principal); R53.83 Other fatigue; E55.9 Vitamin D deficiency, unspecified; Z01.812 Encounter for preprocedural laboratory examination; I10 Essential (primary) hypertension
CPT/HCPCS: 36415; 82306; 84520; 82565; 82607; 82728; 84439; 84443

== ENCOUNTER 2021-05-29 02:39 | Outpatient (CLI) | payer BC, SELFPAY ==
[2021-05-31 01:00] LABS: COVID-19 RT-PCR UVMMC Result Negative (Negative)
== END 2021-05-29 02:40 | disposition home or self-care (01) ==
LOC: LBO 02:39
PROVIDERS: PCP Family Medicine; Visit Provider Family Medicine
DX: Z20.822 Contact with and (suspected) exposure to COVID-19 (principal)
CPT/HCPCS: U0003

== ENCOUNTER 2021-06-05 09:17 | Outpatient (CLI) | payer BC, SELFPAY ==
[2021-06-07 12:50] LABS: COVID-19 RT-PCR UVMMC Result Negative (Negative)
== END 2021-06-05 09:18 | disposition home or self-care (01) ==
PROVIDERS: PCP Family Medicine; Visit Provider Family Medicine
DX: Z20.822 Contact with and (suspected) exposure to COVID-19 (principal)
CPT/HCPCS: U0003

== ENCOUNTER 2021-06-12 10:05 | Outpatient (CLI) | payer BC, SELFPAY ==
[2021-06-13 11:38] LABS: COVID-19 RT-PCR UVMMC Result Negative (Negative)
== END 2021-06-12 10:06 | disposition home or self-care (01) ==
PROVIDERS: PCP Family Medicine; Visit Provider Family Medicine
DX: Z20.822 Contact with and (suspected) exposure to COVID-19 (principal); Z11.52 Encounter for screening for COVID-19
CPT/HCPCS: U0003

== ENCOUNTER 2021-06-19 07:10 | Outpatient (CLI) | payer BC, SELFPAY ==
[2021-06-21 11:42] LABS: COVID-19 RT-PCR UVMMC Result Negative (Negative)
== END 2021-06-19 07:11 | disposition home or self-care (01) ==
PROVIDERS: PCP Family Medicine; Visit Provider Family Medicine
DX: Z20.822 Contact with and (suspected) exposure to COVID-19 (principal)
CPT/HCPCS: U0003

== ENCOUNTER 2021-06-26 09:33 | Outpatient (CLI) | payer BC, SELFPAY ==
[2021-06-27 10:25] LABS: COVID-19 RT-PCR UVMMC Result Negative (Negative)
== END 2021-06-26 09:34 | disposition home or self-care (01) ==
PROVIDERS: PCP Family Medicine; Visit Provider Family Medicine
DX: Z20.822 Contact with and (suspected) exposure to COVID-19 (principal)
CPT/HCPCS: U0003

== ENCOUNTER 2021-07-03 02:35 | Outpatient (CLI) | payer BC, SELFPAY ==
[2021-07-04 16:13] LABS: COVID-19 RT-PCR UVMMC Result Negative (Negative)
== END 2021-07-03 02:36 | disposition home or self-care (01) ==
LOC: LBO 02:35
PROVIDERS: PCP Family Medicine; Visit Provider Family Medicine
DX: Z20.822 Contact with and (suspected) exposure to COVID-19 (principal); Z11.52 Encounter for screening for COVID-19
CPT/HCPCS: U0003

== ENCOUNTER 2021-07-10 09:38 | Outpatient (CLI) | payer BC, SELFPAY ==
[2021-07-11 13:24] LABS: COVID-19 RT-PCR UVMMC Result Negative (Negative)
== END 2021-07-10 09:39 | disposition home or self-care (01) ==
PROVIDERS: PCP Family Medicine; Visit Provider Family Medicine
DX: Z20.822 Contact with and (suspected) exposure to COVID-19 (principal); Z11.52 Encounter for screening for COVID-19
CPT/HCPCS: U0003

== ENCOUNTER 2021-07-20 20:11 | Outpatient (REF) | payer BC, SELFPAY ==
[2021-07-22 13:00] LABS: COVID-19 RT-PCR UVMMC Result Negative (Negative)
== END 2021-07-20 20:12 | disposition home or self-care (01) ==
LOC: NCHCN 20:11
PROVIDERS: PCP Family Medicine; Visit Provider Family Medicine
DX: Z11.52 Encounter for screening for COVID-19 (principal)
CPT/HCPCS: U0003

== ENCOUNTER 2021-08-07 07:52 | Outpatient (CLI) | payer BC, SELFPAY ==
--- OUTSIDE RECORDS SUMMARY | 2021-08-07 07:55 | XMS_ITS ---
:1960 Author Care Team Providers Name Role Phone JAQUELIN WILKERSON Primary Care Provider [phone] [facility] Referring Provider [facility] OTHER [phone] Allergies Code Code System Name Reaction Severity Status Onset 912709 RxNorm Augmentin Other Severe Active ? RxNorm Cetirizine Other Severe Active ? 3498 RxNorm Diphenhydramine Other Severe Active ? 10850 RxNorm Percocet Other Mild Active ? Medications Name Status Start Date Stop Date ? ? Briviact 100 mg tablet Active ? Not avail able Take 1 tablet every day by oral route in the evening. Focalin 5 mg tablet Active ? Not availabl e Take 1 tablet every day by oral route. Focalin XR 5 mg capsule,extended release Active ? Not available Take 2 capsules every day by oral route. hydrochlorothiazide 25 mg tablet Active ? Not available Take 1 tablet every day by oral route. sumatriptan 100 mg tablet Active ? Not av ailable Take 1 tablet every day by oral route as needed. Topamax 25 mg tablet Active ? Not availab le Take 1 tablet every day by oral route. Problems Name Status Onset Date Source ? Nightmares Active 02/18/2021 ? Insomnia Active 02/18/2021 ? Periodic Limb Movement Disorder Active 02/18/2021 ? Morning Headache Active 02/18/2021 ? Migraine Active 02/18/2021 ? Hypertensive Disorder Active 02/18/2021 ? Nodule of Lung Active 02/18/2021 ? Lesion of Lip Active 02/18/2021 ? Cyclical Vomiting Syndrome Active 02/18/2021 ? Liver Mass Active 02/18/2021 ? Joint Swelling Active 02/18/2021 ? Fibromyalgia Active 02/18/2021 ? Cramp in Lower Limb Active 02/18/2021 ? Sleep Apnea Active 02/18/2021 ? Fatigue Active 02/18/2021 ? Apnea Active 02/18/2021 ? Snoring Active 02/18/2021 ? Compression Fracture of Lumbar Spine Active 02/18/2021 ? Attention Deficit Hyperactivity Disorder, Active 2020 ? Predominantly Inattentive Type Exposure to Coronavirus Infection Active 02/18/2021 ? Pain in Left Knee Active 02/18/2021 ? Procedures None recorded. Results Lab Results Date Name Specimen Result Interpretation Description Value Range Status Address ? 05/25/2021 Vitamin D, ? No observation ? ? ? [facility] 25-Hydroxy, recorded. [facility] Total, Serum [facility] L ab: [address], [place] 05/25/2021 Vitamin B12, ? No observation ? ? ? [facility] Serum recorded. [facility] L ab: [address], [place] 05/25/2021 Ferritin, Serum ? No observation ? ? ? [facility] or Plasma recorded. [facility] L ab: [address], [place] 05/25/2021 T4, Free, Serum ? No observation ? ? ? [facility] recorded. [facility] L ab: [address], [place] Past Encounters 05/04/2021 Obstructive Sleep Apnea Syndrome; Health Education Given; Periodic Limb Movement Disorder; Fatigue; Decreased Vitamin D; Migraine; Cyclical Vomiting Syndrome Stewart Lima MD, Board Certified Sleep Ph ysician: [address] [place] [address] [address], [place] [address], Ph. 02/23/2021 Snoring; Migraine; Cyclical Vomiting Syn drome; Periodic Limb Movement Disorder Stewart Lima MD, Board Certified Sleep Ph ysician: [address] [place] [address], [place] [address], Ph. Social History Tobacco Smoking Status Never Smoker Vaccine List None recorded. Plan of Care Patient Instructions Your sleep study shows Obstructive Sleep Apnea and we discussed your treatment options. You expressed good understanding and agreed to proceed with CPAP/BIPAP therapy. We discussed process of initiating thera py, commonly encountered problems and ways to get help and troubleshoot them. I have sent a script for new machine to the following Durable Medical Equipment Provider. Please contact them in 2 week if you do not hear from them by then. [facility]: [address], [place], [place]; They will make an appointment for you to pick and shovel man the machine and show you how to put on the mask and operate the machine. Making the effort to use your machine ev carolyne time you sleep is very important, especially as you get used to therapy. Please call them if you have any questions on how to use machine or use your mask. Ca ll them if your mask is not fitting righ t and need to be fitted with a new one. This is important to do as early as possible. Please call Sleep Clinic if you have any other concerns or problems before your next appointment. Remember to bring your entire PAP make up worker including mask, hose, and plug to your future appointme nts. This allows me to provide you with the best patient care and address any of your questions/concerns on therapy. We will request in lab sleep study via [employer] insurance. We will call you to schedule the sleep s anamika May also consider: Coenzyme Q10 ? 200 mg orally twice daily Riboflavin (vitamin B2)? 200 mg orally t wice daily [employer] follow up PSG results in 2 months Reminders Provider Appointments None recorded. ? ? Lab None recorded. ? ? Referral None recorded. ? ? Procedures None recorded. ? ? Surgeries None recorded. ? ? Imaging None recorded. ? ? Vitals 05/04/2021 01:00PM Office 30 Height Blood Pressure 177.8 cm 120/72 mm[Hg] 02/23/2021 09:00AM New Patient 45 Height Weight BMI Blood Pressure 177.8 cm 92.99 kg 29.4 kg/m2 139/80 mm[Hg]
[2021-08-09 00:47] LABS: COVID-19 RT-PCR UVMMC Result Negative (Negative)
== END 2021-08-07 07:53 | disposition home or self-care (01) ==
PROVIDERS: PCP Family Medicine; Visit Provider Family Medicine
DX: Z20.822 Contact with and (suspected) exposure to COVID-19 (principal)
CPT/HCPCS: U0003

== ENCOUNTER 2021-08-24 12:12 | Outpatient (CLI) | payer BC, SELFPAY ==
[2021-08-25 01:19] LABS: COVID-19 RT-PCR UVMMC Result Negative (Negative)
== END 2021-08-24 12:13 | disposition home or self-care (01) ==
LOC: LBO 12:13
PROVIDERS: PCP Family Medicine; Visit Provider Family Medicine
DX: Z20.822 Contact with and (suspected) exposure to COVID-19 (principal)
CPT/HCPCS: U0003

== ENCOUNTER 2021-09-07 13:50 | Outpatient (CLI) | payer BC, SELFPAY ==
[2021-09-08 20:25] LABS: COVID-19 RT-PCR UVMMC Result Negative (Negative)
== END 2021-09-07 13:51 | disposition home or self-care (01) ==
PROVIDERS: PCP Family Medicine; Visit Provider Family Medicine
DX: Z20.822 Contact with and (suspected) exposure to COVID-19 (principal)
CPT/HCPCS: U0003

== ENCOUNTER 2021-09-14 11:22 | Outpatient (CLI) | payer BC, SELFPAY ==
[2021-09-15 13:33] LABS: COVID-19 RT-PCR UVMMC Result Negative (Negative)
== END 2021-09-14 11:23 | disposition home or self-care (01) ==
PROVIDERS: PCP Family Medicine; Visit Provider Family Medicine
DX: Z20.822 Contact with and (suspected) exposure to COVID-19 (principal)
CPT/HCPCS: U0003

== ENCOUNTER 2021-09-18 10:20 | Outpatient (CLI) | payer BC, SELFPAY ==
[2021-09-19 13:49] LABS: COVID-19 RT-PCR UVMMC Result Negative (Negative)
== END 2021-09-18 10:21 | disposition home or self-care (01) ==
PROVIDERS: PCP Family Medicine; Visit Provider Family Medicine
DX: Z20.822 Contact with and (suspected) exposure to COVID-19 (principal)
CPT/HCPCS: U0003

== ENCOUNTER 2021-09-25 00:57 | Outpatient (CLI) | payer BC, SELFPAY ==
[2021-09-26 02:02] LABS: COVID-19 RT-PCR UVMMC Result Negative (Negative)
== END 2021-09-25 00:58 | disposition home or self-care (01) ==
LOC: LBO 00:58
PROVIDERS: PCP Family Medicine; Visit Provider Family Medicine
DX: Z20.822 Contact with and (suspected) exposure to COVID-19 (principal)
CPT/HCPCS: U0003

== ENCOUNTER 2021-10-02 10:28 | Outpatient (CLI) | payer BC, SELFPAY ==
[2021-10-03 17:19] LABS: COVID-19 RT-PCR UVMMC Result Negative (Negative)
== END 2021-10-02 10:29 | disposition home or self-care (01) ==
PROVIDERS: PCP Family Medicine; Visit Provider Family Medicine
DX: Z20.822 Contact with and (suspected) exposure to COVID-19 (principal)
CPT/HCPCS: U0003

== ENCOUNTER 2021-10-12 10:09 | Outpatient (REF) | payer BC, SELFPAY ==
[2021-10-12 15:15] LABS: Abs Immature Grans 0.02 10^3/uL (0.0-0.06); Absolute Basophil Count 0.04 10^3/uL (0.0-0.2); Absolute Eosinophil Count 0.27 10^3/uL (0.0-0.7); Absolute Lymphocyte Count 1.96 10^3/uL (1.2-3.4); Absolute Monocyte Count 0.59 10^3/uL (0.1-0.8); Absolute Neutrophil Count 2.59 10^3/uL (1.2-6.7); Basophils % 0.7; Eosinophils % 4.9; HCT 45.9 % (40.0-50.0); Immature Grans % 0.4; Lymphocytes % 35.8; MCH 31.3 pg (27.0-33.0); MCHC 34.9 % (32.0-36.0); MCV 89.6 fL (80-95); MPV 10.3 fL (8.0-11.0); Monocytes % 10.8; Neutrophils % 47.4; Nucleated RBC 0 %; Platelet Count 327 10^3/uL (130-400); RBC 5.12 10^6/uL (4.36-5.78); RDW 11.9 % (11.8-14.1); RDW-SD 39.1 fL; WBC 5.47 10^3/uL (4.4-10.8)
[2021-10-12 15:37] LABS: ALT 42 U/L (16-63); AST 22 U/L (15-37); Albumin 3.9 g/dL (3.4-5.0); Alkaline Phosphatase 69 U/L (46-116); Anion Gap 7.1 mmol/L (3-11); BUN 20 mg/dL (7-18); Bilirubin, Total 0.4 mg/dL (0.2-1.0); CO2 28.9 mmol/L (21.0-32.0); CREATININE 1.2 mg/dL (0.70-1.30); Calcium 9.2 mg/dL (8.5-10.1); Chloride 102 mmol/L (98-107); Glucose 91 mg/dL (74-106); Potassium 3.9 mmol/L (3.5-5.1); Sodium 138 mmol/L (136-145); Total Protein 7.4 g/dL (6.4-8.2)
== END 2021-10-12 10:10 | disposition home or self-care (01) ==
LOC: NCHCN 10:09
PROVIDERS: PCP Family Medicine; Visit Provider Family Medicine
DX: R55 Syncope and collapse (principal); R20.2 Paresthesia of skin
CPT/HCPCS: 80053; 85025

== ENCOUNTER 2021-10-12 10:54 | Outpatient (CLI) | payer BC, SELFPAY ==
[2021-10-13 23:02] LABS: COVID-19 RT-PCR UVMMC Result Negative (Negative)
== END 2021-10-12 10:55 | disposition home or self-care (01) ==
PROVIDERS: PCP Family Medicine; Visit Provider Family Medicine
DX: Z20.822 Contact with and (suspected) exposure to COVID-19 (principal)
CPT/HCPCS: U0003

== ENCOUNTER 2021-10-19 10:51 | Outpatient (CLI) | payer BC, SELFPAY ==
[2021-10-20 01:49] LABS: COVID-19 RT-PCR UVMMC Result Negative (Negative)
== END 2021-10-19 10:52 | disposition home or self-care (01) ==
PROVIDERS: PCP Family Medicine; Visit Provider Family Medicine
DX: Z20.822 Contact with and (suspected) exposure to COVID-19 (principal)
CPT/HCPCS: U0003

== ENCOUNTER 2021-10-23 18:18 | Outpatient (CLI) | payer BC, SELFPAY ==
[2021-10-23 22:50] LABS: COVID-19 RT-PCR UVMMC Result Negative (Negative)
== END 2021-10-23 18:19 | disposition home or self-care (01) ==
LOC: LBO 18:19
PROVIDERS: PCP Family Medicine; Visit Provider Family Medicine
DX: Z20.822 Contact with and (suspected) exposure to COVID-19 (principal)
CPT/HCPCS: U0003

== ENCOUNTER 2021-10-26 11:22 | Outpatient (CLI) | payer BC, SELFPAY ==
[2021-10-26 20:11] LABS: COVID-19 RT-PCR UVMMC Result Negative (Negative)
== END 2021-10-26 11:23 | disposition home or self-care (01) ==
PROVIDERS: PCP Family Medicine; Visit Provider Family Medicine
DX: Z20.822 Contact with and (suspected) exposure to COVID-19 (principal)
CPT/HCPCS: U0003

== ENCOUNTER 2021-10-30 03:54 | Outpatient (CLI) | payer BC, SELFPAY ==
[2021-10-30 19:13] LABS: COVID-19 RT-PCR UVMMC Result Negative (Negative)
== END 2021-10-30 03:55 | disposition home or self-care (01) ==
PROVIDERS: PCP Family Medicine; Visit Provider Family Medicine
DX: Z20.822 Contact with and (suspected) exposure to COVID-19 (principal)
CPT/HCPCS: U0003

== ENCOUNTER 2021-11-02 01:16 | Outpatient (CLI) | payer BC, SELFPAY | END 2021-11-02 01:17 | disposition home or self-care (01) | LOC: LBO 01:16 | PROVIDERS: PCP Family Medicine; Visit Provider Family Medicine ==

== ENCOUNTER 2021-11-06 10:16 | Outpatient (CLI) | payer BC, SELFPAY ==
[2021-11-06 22:12] LABS: COVID-19 RT-PCR UVMMC Result Negative (Negative)
== END 2021-11-06 10:17 | disposition home or self-care (01) ==
PROVIDERS: PCP Family Medicine; Visit Provider Family Medicine
DX: Z20.822 Contact with and (suspected) exposure to COVID-19 (principal)
CPT/HCPCS: U0003

== ENCOUNTER 2021-11-30 10:25 | Outpatient (CLI) | payer BC, SELFPAY ==
[2021-11-30 20:39] LABS: COVID-19 RT-PCR UVMMC Result Negative (Negative)
== END 2021-11-30 10:26 | disposition home or self-care (01) ==
PROVIDERS: PCP Family Medicine; Visit Provider Family Medicine
DX: Z20.822 Contact with and (suspected) exposure to COVID-19 (principal)
CPT/HCPCS: U0003

== ENCOUNTER 2021-12-04 01:09 | Outpatient (CLI) | payer BC, SELFPAY ==
[2021-12-04 20:26] LABS: COVID-19 RT-PCR UVMMC Result Negative (Negative)
== END 2021-12-04 01:10 | disposition home or self-care (01) ==
LOC: LBO 01:09
PROVIDERS: PCP Family Medicine; Visit Provider Family Medicine
DX: Z20.822 Contact with and (suspected) exposure to COVID-19 (principal)
CPT/HCPCS: U0003

== ENCOUNTER 2021-12-18 10:15 | Outpatient (CLI) | payer BC, SELFPAY ==
[2021-12-19 11:31] LABS: COVID-19 RT-PCR UVMMC Result Negative (Negative)
== END 2021-12-18 10:16 | disposition home or self-care (01) ==
PROVIDERS: PCP Family Medicine; Visit Provider Family Medicine
DX: Z20.822 Contact with and (suspected) exposure to COVID-19 (principal)
CPT/HCPCS: U0003

== ENCOUNTER 2021-12-28 11:11 | Outpatient (CLI) | payer BC, SELFPAY ==
[2021-12-29 13:04] LABS: COVID-19 RT-PCR UVMMC Result Negative (Negative)
== END 2021-12-28 11:12 | disposition home or self-care (01) ==
PROVIDERS: PCP Family Medicine; Visit Provider Family Medicine
DX: Z20.822 Contact with and (suspected) exposure to COVID-19 (principal)
CPT/HCPCS: U0003

== ENCOUNTER 2022-01-18 11:07 | Outpatient (CLI) | payer BC, SELFPAY ==
[2022-01-19 20:29] LABS: COVID-19 RT-PCR UVMMC Result Negative (Negative)
== END 2022-01-18 11:08 | disposition home or self-care (01) ==
PROVIDERS: PCP Family Medicine; Visit Provider Family Medicine
DX: Z20.822 Contact with and (suspected) exposure to COVID-19 (principal)
CPT/HCPCS: U0003

== ENCOUNTER 2022-05-07 20:17 | Outpatient (REF) | payer BC, SELFPAY ==
[2022-05-07 15:28] LABS: Abs Immature Grans 0.02 10^3/uL (0.0-0.06); Absolute Basophil Count 0.05 10^3/uL (0.0-0.2); Absolute Eosinophil Count 0.08 10^3/uL (0.0-0.7); Absolute Lymphocyte Count 1.81 10^3/uL (1.2-3.4); Absolute Monocyte Count 0.72 10^3/uL (0.1-0.8); Absolute Neutrophil Count 4.01 10^3/uL (1.2-6.7); Basophils % 0.7; Eosinophils % 1.2; HCT 45.4 % (40.0-50.0); HGB 15.6 g/dL (13.5-17.5); Immature Grans % 0.3; Lymphocytes % 27.1; MCHC 34.4 % (32.0-36.0); MCV 90 fL (80-95); MPV 10.1 fL (8.0-11.0); Monocytes % 10.8; Neutrophils % 59.9; Platelet Count 343 10^3/uL (130-400); RBC 5.03 10^6/uL (4.36-5.78); RDW 12.1 % (11.8-14.1); RDW-SD 39.9 fL; WBC 6.69 10^3/uL (4.4-10.8)
[2022-05-07 16:03] LABS: ALT 34 U/L (16-63); AST 20 U/L (15-37); Alkaline Phosphatase 69 U/L (46-116); Anion Gap 11.7 mmol/L (3-11); BUN 21 mg/dL (7-18); Bilirubin, Total 0.3 mg/dL (0.2-1.0); CO2 26.3 mmol/L (21.0-32.0); CREATININE 1.2 mg/dL (0.70-1.30); Calcium 9.1 mg/dL (8.5-10.1); Calculated LDL 143 mg/dL (<100); Chloride 101 mmol/L (98-107); Cholesterol 220 mg/dL (<200); Glucose 93 mg/dL (74-106); HDL Cholesterol 63 mg/dL (40-60); Potassium 3.7 mmol/L (3.5-5.1); Sodium 139 mmol/L (136-145); Total Protein 7.1 g/dL (6.4-8.2); Triglyceride 70 mg/dL (<150)
== END 2022-05-07 20:18 | disposition home or self-care (01) ==
LOC: NCHCN 20:17
PROVIDERS: PCP Family Medicine; Visit Provider Family Medicine
DX: I10 Essential (primary) hypertension (principal); R55 Syncope and collapse; G43.A0 Cyclical vomiting, in migraine, not intractable; Z12.5 Encounter for screening for malignant neoplasm of prostate
CPT/HCPCS: 80053; 80061; 84153; 85025

== ENCOUNTER 2023-04-11 10:45 | Outpatient (REF) | payer BC, SELFPAY ==
[2023-04-11 17:20] LABS: HCT 43.5 % (40.0-50.0); HGB 14.7 g/dL (13.5-17.5); MCH 31.3 pg (27.0-33.0); MCHC 33.8 % (32.0-36.0); MCV 93 fL (80-95); MPV 10.4 fL (8.0-11.0); Platelet Count 317 10^3/uL (130-400); RBC 4.69 10^6/uL (4.36-5.78); RDW 13.1 % (11.8-14.1); RDW-SD 44.3 fL; WBC 5.51 10^3/uL (4.4-10.8)
[2023-04-11 17:39] LABS: ALT 34 U/L (16-63); AST 20 U/L (15-37); Albumin 3.8 g/dL (3.4-5.0); Alkaline Phosphatase 72 U/L (46-116); BUN 24 mg/dL (7-18); Bilirubin, Total 0.5 mg/dL (0.2-1.0); CREATININE 1.2 mg/dL (0.70-1.30); Calcium 8.8 mg/dL (8.5-10.1); Chloride 104 mmol/L (98-107); Estimated GFR 68.38 (mL/min/1.73m2); Glucose 97 mg/dL (74-106); Sodium 141 mmol/L (136-145); Total Protein 6.9 g/dL (6.4-8.2)
[2023-04-12 19:09] LABS: PSA, Screening 1.4 ng/mL (<=4.5)
== END 2023-04-11 10:46 | disposition home or self-care (01) ==
LOC: NCHCN 10:45
PROVIDERS: PCP Family Medicine; Visit Provider Family Medicine
DX: Z00.00 Encounter for general adult medical examination without abnormal findings (principal); I10 Essential (primary) hypertension; N40.0 Benign prostatic hyperplasia without lower urinary tract symptoms; R55 Syncope and collapse
CPT/HCPCS: 80053; 84153; 85027

== ENCOUNTER 2023-11-04 21:34 | Outpatient (REF) | payer BC, SELFPAY ==
[2023-11-04 21:13] LABS: HCT 43.8 % (40.0-50.0); MCH 31.1 pg (27.0-33.0); MCHC 34.2 % (32.0-36.0); MCV 91 fL (80-95); MPV 10.6 fL (8.0-11.0); Platelet Count 371 10^3/uL (130-400); RBC 4.82 10^6/uL (4.36-5.78); RDW 12.7 % (11.8-14.1); RDW-SD 41.6 fL; WBC 6.15 10^3/uL (4.4-10.8)
[2023-11-04 21:36] LABS: ALT 38 U/L (16-63); AST 23 U/L (15-37); Alkaline Phosphatase 70 U/L (46-116); Anion Gap 12.5 mmol/L (3-11); BUN 24 mg/dL (7-18); Bilirubin, Total 0.5 mg/dL (0.2-1.0); CO2 25.5 mmol/L (21.0-32.0); CREATININE 1.2 mg/dL (0.70-1.30); Calcium 9.4 mg/dL (8.5-10.1); Calculated LDL 150 mg/dL (<100); Chloride 102 mmol/L (98-107); Cholesterol 230 mg/dL (<200); Estimated GFR 68.38 (mL/min/1.73m2); Glucose 85 mg/dL (74-106); HDL Cholesterol 61 mg/dL (40-60); Potassium 3.6 mmol/L (3.5-5.1); Sodium 140 mmol/L (136-145); Total Protein 7.4 g/dL (6.4-8.2); Triglyceride 96 mg/dL (<150)
--- OUTSIDE RECORDS SUMMARY | 2023-11-04 21:36 | XMS_ITS | Continuity of Care Document ---
Author Name Unknown Organization [facility] Ambulatory Clinics Address [address] [place] [address] Care Team Providers Care Planning Associate Name Role Phone JAQUELIN WILKERSON Primary Care Physician [phone] Encounter [facility] NBR [id number] Date(s): 10/21/23 - 10/21/23 [facility] Amb[facility] [address] [place], [place] [address] Encounter Diagnosis Migraine headache(Discharge Diagnosis) - 10/21/23 Cyclic vomiting syndrome(Discharge Diagnosis) - 10/21/23 Discharge Disposition: Home or Self Care Attending Physician: Anish Rawls MD Referring Physician: SARA SERRA M.D. Allergies, Adverse Reactions, Alerts Substance Reaction Severity Status amoxicillin Unknown Unknown Active amoxicillin-clavulanate caused C diff Unknown Act josé luis acetaminophen-oxycodone itching Unknown Acti ve diphenhydrAMINE Mental status change Unknown Acti ve Cetirizine Hydrochloride Mental Status change Unknown Active Assessment and Plan Future Appointments Functional Status 10/21/23 Recent Travel History No recent travel Medications Ajovy 225 mg/1.5 mL subcutaneous solution 675 mg =, Subcutaneous, every 3 mo, # 4.5 mL, 4 Refill(s), Pharmacy: [facility] #[id number], 177.8, cm, 10/21/23 9:00:00 EST, Height, 95.62, kg, 10/21/23 9:12:00 EST, Weight Dosing Start Date: 10/21/23 Status: Ordered Ajovy 225 mg/1.5 mL subcutaneous solution 1 mL, 0 Refill(s), 0 Refill(s) Start Date: 10/14/23 Status: Ordered Ajovy Autoinjector 225 mg/1.5 mL subcutaneous solution 1 mL, 0 Refill(s), 0 Refill(s) Start Date: 10/14/23 Status: Ordered Briviact 25 mg oral tablet 60 EA, 0 Refill(s), TAKE 1 TABLET BY MOUTH TWICE DAILY, 0 Refill(s) Start Date: 10/14/23 Status: Ordered dexmethylphenidate 10 mg oral capsule, extended release 40 EA, 0 Refill(s), 0 Refill(s) Start Date: 10/14/23 Status: Ordered dexmethylphenidate 2.5 mg oral tablet 56 EA, 0 Refill(s), 0 Refill(s) Start Date: 10/14/23 Status: Ordered dexmethylphenidate 5 mg oral capsule, extended release 56 EA, 0 Refill(s), TAKE ONE CAPSULE BY MOUTH TWICE A DAY, 0 Refill(s) Start Date: 10/14/23 Status: Ordered dexmethylphenidate 5 mg oral tablet 28 EA, 0 Refill(s), TAKE ONE TABLET BY MOUTH EVERY DAY IN THE AFTERNOON, 0 Refill(s) Start Date: 10/14/23 Status: Ordered eletriptan 40 mg oral tablet 9 EA, 0 Refill(s), TAKE 1 TABLET BY MOUTH. IF HEADACHE RETURNS MAY REPEAT DOSE AFTER 2 HOURS (MAX 2TABLETS DAILY), 0 Refill(s) Start Date: 10/14/23 Status: Ordered eptinezumab-jjmr 100 mg/mL intravenous solution 300 mg =, IV, every 3 mo, # 3 mL, 0 Refill(s) Start Date: 10/21/23 Status: Ordered hydroCHLOROthiazide 25 mg oral tablet 90 EA, 0 Refill(s), TAKE ONE TABLET BY MOUTH EVERY DAY, 0 Refill(s) Start Date: 10/14/23 Status: Ordered LORazepam 1 mg oral tablet 30 EA, 0 Refill(s), TAKE ONE TABLET BY MOUTH AT BEDTIME NEEDED, 0 Refill(s) Start Date: 10/14/23 Status: Ordered Nurtec ODT 75 mg oral tablet, disintegrating See Instructions, PRN headache, 1 tab Oral as needed not to exceed 75 mg in 24 hours, # 16 tab, 12 Refill(s), Pharmacy: [facility] #[id number], 177.8, cm, 10/21/23 9:00:00 EST, Height, 95.62, kg, 01/05/24 9:12:00 EST, Weight Dosing Start Date: 10/21/23 Status: Ordered Paxlovid 150 mg-100 mg (300 mg-100 mg Dose) oral tablet 30 EA, 0 Refill(s), TK 2 NIRMATRELVIR TS AND 1 RITONAVIR T TOGETHER PO BID FOR 5 DAYS, 0 Refill(s) Start Date: 10/14/23 Status: Ordered Vital Signs Most recent to oldest [Reference Range]: 1 Weight 95.62 kg (10/21/23 9:00 AM) Weight Measured (lbs) 210.806 lb (10/21/23 9:00 AM) Weight Dosing 95.620 kg (10/21/23 9:00 AM) [place] Body Weight Calculated 73 kg (10/21/23 9:00 AM) Height 177.80 cm (10/21/23 9:00 AM) Height/Length Measured (inches) 70 inch (10/21/23 9:00 AM) BSA Measured 2.17 m2 (10/21/23 9:00 AM) Body Mass Index 30.25 kg/m2 (10/21/23 9:00 AM) Social History Social History Type Response Tobacco Never tobacco user T obacco Use:. Sex Physician Outpatient Note * Anish Rawls MD: PERFORM, MODIFY, MODIFY, MODIFY, MODIFY Event Display: Office Clinic Note Physician Authored Date: [id number] VICENTE WHITE :1960 Age:63 years Sex:Male Visit Date:10/21/2023 Primary Care Physician: JAQUELIN WILKERSON Chief Complaint Additional Information 63-year-old,ambidextrous ??man who presents to neurology clinic for concerns related to headache ?? He is alone in this visit. He prefers to be called by first name. History of Present Illness ?? Vicente mentioned that his symptoms started about 5 years He said that??was diagnosed with cyclic vomiting syndrome,said that his symptoms were consistent initially with increased salivation and dry heave??and subsequently progressed?? to vomiting. He has having those attacks every three days but resolved after starting levetiracetam and later brivaracetam. ? He also developed headaches as described below during that time. Headaches are persistent and he described them as follows: ?? Premonitory symptoms: He may develop irritability that happens out of nowhere about 20 minutes before headache phase. Aura:None apparently. However, later mentioned that what sound expressive aphasia. Headache phase: Holocranial dull pain, apparently not throbbing?? severe pain. However, he said that is not exactly pain but had a hard time to describe his symptoms..No nausea or vomiting with theseattacks.??He has photo and phonophobia.??Attacks can last from 6 to 12 hours. Autonomic symptoms: No runny nose. No tearing. No pupillary changes. Postdrome: Tired and difficulty concentrating. Frequency: 3 attacks a month, but sometimes are over 4 a month and can be unpredictable. Attacks are debilitating. Triggers: Stress Red flags: He said that has had several concussion, in few lost consciousness. He said that last one was three years ago while mountain biking. No transient visual obscuration. No positional headache. Mood: Depressed and overwhelmed. He is seeing a therapist. Sleep: He has a diagnosis of SHELIA, he is currently not wearing??CPAP. However he said that sleep specialist mentioned that he does not need a CPAP. He has trouble falling or staying asleep. Medications tried: ? Abortive:? Sumatriptan 100??mg, it was ineffective?Ibuprofen??600 mg, may be effective in occasions. ? Tylenol 500 mg, may be effective when do in combination with ibuprofen.?Current:? Eletriptan 40 mg, it sort of helps but rarely??takes it.?He prefers not to take any medication, but sometimes uses Advil. ?Preventive: ?Past:?Gabapentin, ineffective. ?Apparently topiramate, it was ineffective.? He said that tried multiple first line oral medications but does not remember. I couldnot find it in the received records. ?Galcanezumab??(Emgality)??120 mg ??initially responded quite well, however after few months he stopped responding. ? Current: ?? Fremanezumab(Ajovy) 225 mg once a month. He feels that help somewhat. Rimegepant(Nurtec) 75 mg every other day ?? Patient was on levetiracetam 1500 mg twice a day for cyclic vomiting syndrome, but developed suicidal ideation. Brivaracetam 25 mg twice a day for [facility] . This medication can cause concentration difficulties and needs dexmethylphenidate. He said that tried to wean off Briviact but then developed persistent vomiting. He said vomiting is gone for 5-6 years. ?? Non-pharmacological interventions:?? Massage therapy, helped a bit.?He said that tried some mindfulness/hypnosis and was a bit helpful. Workup:? MRI brain : Mild periventricular and subcortical white matter disease. Sleep study 2020: Moderate obstructive sleep apnea. PLMD. Suspicion of RLS. ? He does not remember having cyclic vomitng while was a child. He also does not have history of abdominal pain. Physical Exam General Physical Examination: ?? General:??well nourished, in no acute distress, appropriately groomed and dressed?? Skin: No rashes or lesions (full gowned exam not performed) Pulm:??Breathing comfortably on room air Cardiac:??RRR Abdomen:??soft, non-distended? Neurological Examination: ?? Language/speech: Naming and repetition intact, fluent, follows 3-step commands??across midline?? Mental status:??Oriented to time, place and self ?? Cranial Nerves: II: Pupils equal and reactive, no RAPD, no VF deficits III, IV, : EOM intact, no gaze preference or deviation, no nystagmus. V: normal sensation in V1, V2, and V3 segments bilaterally VII: no asymmetry, no nasolabial fold flattening VIII: normal hearing to speech IX, X: normal palatal elevation, no uvular deviation XI: 5/5 head turn and 5/5 shoulder shrug bilaterally XII: midline tongue protrusion Motor: 5/5 muscle power in Rt shoulder abductors/adductors, elbow flexors/extensors, wrist flexors/extensors, finger abductors/adductors.?5/5 in Rt hipflexors/extensors, knee flexors/extensors, ankle dorsiflexors and planter flexors. ?? 5/5 muscle power in Lt shoulder abductors/adductors, elbow flexors/extensors, wrist flexors/extensors, finger abductors/adductors.?5/5 in Lt hipflexors/extensors, knee flexors/extensors, ankle dorsiflexors and planter flexors. ?? Reflexes:??2/4 throughout, bilateral flexor planter response, no Le's, no clonus Sensory: Normal to light touch?in 4 extremities ?? No hemineglect, no extinction to double sided stimulation (visual & tactile) Romberg absent Coordination: Normal finger to nose and heel to armando, no tremor, no dysmetria Station: normal stance, no truncal ataxia Gait: Normal; patient able to tip-toe, heel-walk.??Pull test is negative.? Assessment/Plan 1) Migraine without aura 2) Cyclic vomiting syndrome, controlled ?? Plan: ?? Abortive management: ?? Continue Tylenol 500 mg PRN and ibuprofen 800??mg PRN??for now May also try eletriptan 40 mg PRN Consider Cefaly as abortive. ?? Preventive management: ?? Start eptinezumab(Vyepti) 100 mg IV every 3 months as still having debilitating attacks that can occur more than 4 times a month. ?? Continue Fremanezumab(Ajovy) 225 mg once a month for now Continue brivaracetam 25 mg twice a day Continue Nurtec?? 75 mg every other day ?? May consider Cefaly as a preventive too. ?? Recommended therapist to implement CBT for insomnia and migraine. ?? Please visit this website [email or web address] ?? Return to clinic in 3 months ?? Problem List/Past Medical History Ongoing No qualifying data Historical No qualifying data ?Tourette's ?? ADHD Hypertension Cyclic vomiting syndrome Medications Ajovy 225 mg/1.5 mL subcutaneous solution Ajovy Autoinjector 225 mg/1.5 mL subcutaneous solution Briviact 25 mg oral tablet dexmethylphenidate 10 mg oral capsule, extended release dexmethylphenidate 2.5 mg oral tablet dexmethylphenidate 5 mg oral capsule, extended release dexmethylphenidate 5 mg oral tablet eletriptan 40 mg oral tablet hydroCHLOROthiazide 25 mg oral tablet Nurtec ODT 75 mg oral tablet, disintegrating Paxlovid 150 mg-100 mg (300 mg-100 mg Dose) oral tablet Allergies Cetirizine Hydrochloride??(Mental Status change) acetaminophen-oxycodone??(itching) amoxicillin??(Unknown) amoxicillin-clavulanate??(caused C diff) diphenhydrAMINE??(Mental status change) Social History Electronic Cigarette/Vaping Electronic Cigarette Use: Never. Tobacco Never tobacco user Tobacco Use:. He lives alone in a farm. He has 3 children. He works as a dentist He lost his a year ago. She was a nurse. He enjoys skiing and mountain bike. No cigarette smoking, alcohol or recreational drugs. Family History Father has AD dementia ?? Attending Attestation Anish Mendez MD [facility]? I personally spent a total of 60 minutes??providing direct??care for this patient on the date of the encounter.?? Electronically Signed on 10/21/23 10:43 AM Anish Rawls MD Outpatient Summary note * Marshall Mcarthur: PERFORM Event Display: Ambulatory Patient Summary Authored Date: [id number] VICENTE WHITE :1960 Age:63 years Sex:Male Visit Date:10/21/2023 Primary Care Physician: JAQUELIN WILKERSON Ambulatory Visit Instructions We would like to thank you for allowing us to assist you with your healthcare needs. The following includes patient education materials and information regarding your injury/illness. Your Next Steps Instructions From Your Care Team It was a pleasure meeting you today, Vicente. Here are my recommendations for migraine management: ?? Abortive management: ?? Continue Tylenol and ibuprofen for now Consider Cefaly ?? Preventive management: ?? Start eptinezumab(Vyepti) 100 mg IV every 3 months Continue Fremanezumab(Ajovy) 225 mg once a month for now Continue brivaracetam 25 mg twice a day Continue Nurtec?? 75 mg every other day ?? May consider Cefaly as a preventive too. ?? Recommended therapist to implement CBT for insomnia and migraine. ?? Please visit this website [email or web address] ?? Return to clinic in 3 months ?? Please call me if you have any questions or concerns. Scheduled Future Appointments Tuesday 10:00 AM EDT ?? With: Anish Rawls MD Where: [facility] Neurology Status: Confirmed Medications What How Much When Why Instructions New eptinezumab (eptinezumab-jjmr 100 mg/ mL intravenous solution) 300 Milligrams Intravenous Every 3 months Migraine headache Cyclic vomiting syndrome Printed Prescription Unchanged brivaracetam (Briviact 25 mg oral tablet) 60 EA, 0 Refill(s), TAKE 1 TABLET BY MOUTH TWICE DAILY ?? Unchanged dexmethylphenidate (dexmethylphenidate 10 mg oral capsule, extended release) 40 EA, 0 Refill(s) ?? Unchanged dexmethylphenidate (dexmethylphenidate 2.5 mg oral tablet) 56 EA, 0 Refill(s) ?? Unchanged dexmethylphenidate (dexmethylphenidate 5 mg oral capsule, extended release) 56 EA, 0 Refill(s), TAKE ONE CAPSULE BY MOUTH TWICE A DAY ?? Unchanged dexmethylphenidate (dexmethylphenidate 5 mg oral tablet) 28 EA, 0 Refill(s), TAKE ONE TABLET BY MOUTH EVERY DAY IN THE AFTERNOON ?? Unchanged eletriptan (eletriptan 40 mg oral tablet) 9 EA, 0 Refill(s), TAKE 1 TABLET BY MOUTH. IF HEADACHE RETURNS MAY REPEAT DOSE AFTER 2 HOURS (MAX 2TABLETS DAILY) ?? Unchanged fremanezumab (Ajovy 225 mg/ 1.5 mL subcutaneous solution) 1 mL, 0 Refill(s) ?? Unchanged fremanezumab (Ajovy Autoinjector 225 mg/ 1.5 mL subcutaneous solution) 1 mL, 0 Refill(s) ?? Unchanged hydroCHLOROthiazide (hydroCHLOROthiazide 25 mg oral tablet) 90 EA, 0 Refill(s), TAKE ONE TABLET BY MOUTH EVERY DAY ?? Unchanged LORazepam (LORazepam 1 mg oral tablet) 30 EA, 0 Refill(s), TAKE ONE TABLET BY MOUTH AT BEDTIME NEEDED ?? Unchanged nirmatrelvir-ritonavir (Paxlovid 150 mg-100 mg (300 mg-100 mg Dose) oral tablet) 30 EA, 0 Refill(s), TK 2 NIRMATRELVIR TS AND 1 RITONAVIR T TOGETHER PO BID FOR 5 DAYS ?? Unchanged rimegepant (Nurtec ODT 75 mg oral tablet, disintegrating) 16 EA, 0 Refill(s), DISSOLVE 1 TABLET ON THE TONGUE ONCE DAILY NEEDED ?? Your Summary Your Diagnosis Migraine headache Cyclic vomiting syndrome Your Care Team Attending Physician - Anish Rawls MD Primary Care Physician - JAQUELIN WILKERSON Referring Physician - SARA SERRA M.D. Vital Height?? 70.00 in (177.80 cm) Weight?? 210.84 lb (95.62 kg) BMI?? 30.25 Allergies Cetirizine Hydrochloride??(Mental Status change) acetaminophen-oxycodone??(itching) amoxicillin??(Unknown) amoxicillin-clavulanate??(caused C diff) diphenhydrAMINE??(Mental status change) Electronically Signed on: 10/21/2023 10:40 ESTSigned by:MAHIN Patient Care team information Care Team Personnel Name: JAQUELIN WILKERSON Position: No Access Member Role: Primary Care Physician Address: Address: [facility] [address] [place] [address]-
--- OUTSIDE RECORDS SUMMARY | 2023-11-04 21:36 | XMS_ITS | Continuity of Care Document ---
Author Name Unknown Organization [facility] Address [address] [place] [address] Encounter [facility] NBR [id number] Date(s): 11/12/22 - 11/12/22 [facility] [address] [place] [address]- Discharge Disposition: Home or Self Care Attending Physician: SARA SERRA M.D. Admitting Physician: SARA SERRA M.D. Results Radiology Reports * Exam Date Time Procedure Performing Provider Status 11/12/22 11:35 AM MRI Brain w/o Contrast Whitley Mckay (Verified) Notes: (MRI Brain w/o Contrast) Reason For Exam: MOTOR TICS MRI Brain w/o Contrast EXAM DESCRIPTION: MRI Brain w/o Contrast 11/12/2022 INDICATION: MOTOR TICS TECHNIQUE: Technique: Multiplanar MRI examination of the head including FLAIR and diffusion series. COMPARISON: 01/10/2017 FINDINGS: No intracranial mass effect or midline shift. Diffusion weighted images demonstrate no focal area of acute or recent infarct. No hydrocephalus, extra-axial fluid collection or blood breakdown products Several small scattered nonspecific foci of periventricular and subcortical white matter T2 signal prolongation bilaterally which appear slightly more numerous since remote examination. Findings likely reflect sequela of chronic microangiopathy with additional diagnostic possibilities including sequela of migraine headaches, vasculitic process or demyelination Cerebellar tonsil position is normal. The pituitary gland demonstrates normal morphology and signal intensity. No significant temporal horn asymmetry Visualized vascular flow voids and cranial nerves appear within normal limits. The visualized paranasal sinuses are grossly clear. IMPRESSION: No intracranial mass effect or midline shift No acute or recent infarct on diffusion series Nonspecific periventricular and subcortical white matter changes which appear slightly worse since remote examination. Findings likely reflect chronic microangiopathy with additional diagnostic possibilities as described above. JOB #: [id number] Final Signed by: Alphonse Arroyo MD Signed (Electronic Signature): 11/12/2022 11:50 am MR Brain WO contrast * Alphonse Arroyo MD: VERIFY, VERIFY Event Display: Report EXAM DESCRIPTION: MRI Brain w/o Contrast 11/12/2022 INDICATION: MOTOR TICS TECHNIQUE: Technique: Multiplanar MRI examination of the head including FLAIR and diffusion series. COMPARISON: 01/10/2017 FINDINGS: No intracranial mass effect or midline shift. Diffusion weighted images demonstrate no focal area of acute or recent infarct. No hydrocephalus, extra-axial fluid collection or blood breakdown products Several small scattered nonspecific foci of periventricular and subcortical white matter T2 signal prolongation bilaterally which appear slightly more numerous since remote examination. Findings likely reflect sequela of chronic microangiopathy with additional diagnostic possibilities including sequela of migraine headaches, vasculitic process or demyelination Cerebellar tonsil position is normal. The pituitary gland demonstrates normal morphology and signal intensity. No significant temporal horn asymmetry Visualized vascular flow voids and cranial nerves appear within normal limits. The visualized paranasal sinuses are grossly clear. IMPRESSION: No intracranial mass effect or midline shift No acute or recent infarct on diffusion series Nonspecific periventricular and subcortical white matter changes which appear slightly worse since remote examination. Findings likely reflect chronic microangiopathy with additional diagnostic possibilities as described above. JOB #: [id number] Final Signed by: Alphonse Arroyo MD Signed (Electronic Signature): 11/12/2022 11:50 am
[2023-11-04 22:43] LABS: Vitamin D 25 Total 24.2 ng/mL (30-100)
[2023-11-07 09:13] LABS: PSA, Diagnostic 1.2 ng/mL (<=4.5)
== END 2023-11-04 21:35 | disposition home or self-care (01) ==
LOC: NCHCN 21:34
PROVIDERS: PCP Family Medicine; Visit Provider Family Medicine
DX: Z00.00 Encounter for general adult medical examination without abnormal findings (principal)
CPT/HCPCS: 80053; 80061; 82306; 85027; 84153

== ENCOUNTER 2024-07-30 18:36 | Outpatient (REF) | payer BC, SELFPAY ==
[2024-07-30 16:42] LABS: ALT 33 U/L (16-63); AST 21 U/L (15-37); Albumin 3.8 g/dL (3.4-5.0); Alkaline Phosphatase 77 U/L (46-116); Anion Gap 9.7 mmol/L (3-11); BUN 19 mg/dL (7-18); Bilirubin, Total 0.68 mg/dL (0.2-1.0); CO2 29.3 mmol/L (21.0-32.0); CREATININE 1.3 mg/dL (0.70-1.30); Calcium 9.5 mg/dL (8.5-10.1); Calculated LDL 168 mg/dL (<100); Chloride 106 mmol/L (98-107); Cholesterol 249 mg/dL (<200); Estimated GFR 61.73 (mL/min/1.73m2); Glucose 106 mg/dL (74-106); HDL Cholesterol 58 mg/dL (40-60); Potassium 4.3 mmol/L (3.5-5.1); Sodium 145 mmol/L (136-145); Triglyceride 115 mg/dL (<150); Vitamin D 25 Total 40.1 ng/mL (30-100)
[2024-07-31 18:27] LABS: PSA, Screening 2.2 ng/mL (<=4.5)
== END 2024-07-30 18:37 | disposition home or self-care (01) ==
LOC: NCHCN 18:36
PROVIDERS: PCP Family Medicine; Visit Provider Family Medicine
DX: N40.0 Benign prostatic hyperplasia without lower urinary tract symptoms (principal); Z00.00 Encounter for general adult medical examination without abnormal findings
CPT/HCPCS: 80053; 80061; 82306; 84153

== ENCOUNTER 2025-06-10 14:31 | Outpatient (REF) | payer BC, SELFPAY ==
[2025-06-10 16:07] LABS: Abs Immature Grans 0.01 10^3/uL (0.0-0.06); HCT 43.0 % (40.0-50.0); HGB 14.5 g/dL (13.5-17.5); Immature Grans % 0.2 %; MCH 30.6 pg (27.0-33.0); MCHC 33.7 % (32.0-36.0); MCV 91 fL (80-95); MPV 10.3 fL (8.0-11.0); Platelet Count 361 10^3/uL (130-400); RBC 4.74 10^6/uL (4.36-5.78); RDW 12.7 % (11.8-14.1); RDW-SD 41.9 fL; WBC 6.05 10^3/uL (4.4-10.8)
[2025-06-10 16:24] LABS: ALT 28 U/L (16-63); AST 19 U/L (15-37); Albumin 3.7 g/dL (3.4-5.0); Alkaline Phosphatase 64 U/L (46-116); Anion Gap 10.3 mmol/L (3-11); BUN 21 mg/dL (7-18); Bilirubin, Total 0.7 mg/dL (0.2-1.0); CO2 27.7 mmol/L (21.0-32.0); Calcium 8.7 mg/dL (8.5-10.1); Chloride 104 mmol/L (98-107); Estimated GFR 61.35 (mL/min/1.73m2); Glucose 96 mg/dL (74-106); LDH 178 U/L (85-227); Potassium 3.6 mmol/L (3.5-5.1); Sodium 142 mmol/L (136-145); Total Protein 6.6 g/dL (6.4-8.2)
== END 2025-06-10 14:32 | disposition home or self-care (01) ==
LOC: NCHCN 14:31
PROVIDERS: PCP Family Medicine; Visit Provider Family Medicine
DX: R59.1 Generalized enlarged lymph nodes (principal)
CPT/HCPCS: 80053; 83615; 85025